=== PATIENT | male | born 1955 | race Caucasian/White ===

== ENCOUNTER → 2023-09-30 | Outpatient (REF) | payer OTHER, SELFPAY | LOC: DHSLP | PROVIDERS: ATTENDING PHYSICIAN Internal Medicine Critical Care Medicine; FAMILY PHYSICIAN Family Medicine | DX: G47.33 Obstructive sleep apnea (adult) (pediatric) (principal) | CPT/HCPCS: 95800 ==

== ENCOUNTER 2024-03-11 02:22 | Observation (INO) | payer OTHER, SELFPAY ==
[2024-03-10 20:48] VITALS: BP 134/86
[2024-03-10 21:03] LABS: Urine Albumin Trace (Neg - Trace); Urine Bilirubin Negative (Negative); Urine Character Clear (Clear); Urine Color Yellow; Urine Glucose Negative (Negative); Urine Ketone Negative (Negative); Urine Leukocyte 2+ (Negative); Urine Nitrite Negative (Negative); Urine Occult Blood 3+ (Negative); Urine Urobilinogen Negative (Neg - 1+)
[2024-03-10 21:08] LABS: Urine Bacteria Many (Negative); Urine Red Blood Cell 80-90 /HPF (0-2); Urine Squamous Cell 0-2 /LPF (Few)
[2024-03-10] MEDS: TORADOL 30 MG IV (22:01)
[2024-03-10] MEDS: NSS 1000 IV (22:02)
[2024-03-10] MEDS: DILAUDID 1 MG IV (22:03)
[2024-03-10] MEDS: ZOFRAN 4 MG IV (22:05)
[2024-03-10 22:16] LABS: % Basophils 0.5 % (0-2); % Eosinophils 2.3 % (0-6); % Immature Granulocytes 0.4 % (0-0.5); % Lymphocytes 9.9 % (20.5-51.1); % Monocytes 3.9 % (1.7-9.3); Absolute Basophils 0.1 10^3/uL (0-0.2); Absolute Eosinophils 0.3 10^3/uL (0-0.7); Absolute Immature Granulocytes 0.1 10^3/uL (0-0.05); Absolute Lymphocytes 1.5 10^3/uL (1.2-3.4); Absolute Monocytes 0.6 10^3/uL (0.1-0.6); Absolute Neutrophils 12.4 10^3/uL (1.4-6.5); Hemoglobin 14.6 g/dL (13.0-18.0); Mean Corp Hgb Conc. 34.8 g/dL (33.0-37.0); Mean Corpuscular Hgb 30.6 pg (27.0-31.0); Mean Corpuscular Volume 88.1 fL (80.0-94.0); Mean Platelet Volume 10.7 fL (7.4-10.4); Nucleated Red Blood Cells % 0 % (-); Platelet Count 235 10^3/uL (130-400); Red Blood Cell Count 4.77 10^6/uL (4.70-6.10); Red Cell Dist. Width 14.4 % (11.5-14.5); White Blood Cell Count 14.9 10^3/uL (4.8-10.8)
[2024-03-10 22:28] LABS: ALT (SGPT) 37 U/L (0-50); AST (SGOT) 36 U/L (17-59); Alkaline Phosphatase 97 U/L (38-126); Blood Urea Nitrogen 19 mg/dl (9-20); Carbon Dioxide 30 mmol/L (22-30); Glucose 96 mg/dl (70-99); Total Bilirubin 0.5 mg/dl (0.2-1.3); Total Protein 6.3 g/dl (6.3-8.2); eGFR > 60.00
[2024-03-10 22:57] LABS: Chloride 99 mmol/L (98-107); Potassium 3.3 mmol/L (3.5-5.1); Sodium 141 mmol/L (135-145)
--- NOTE | 2024-03-11 00:31 | ED.GENMED ---
History of Present Illness
General
Chief Complaint: Flank Pain
Source: patient
Exam Limitations: none
Time Seen by Provider: 03/10/24 21:42
History of Present Illness
History of Present Illness:
This is a 68 year old male that came sin with c/o right flank pain. States that his pain is a 8/10. States that this started in the morning and continued all day. States that he took Naproxen 2 tablets around 1pm. States that he has a kidney stone
and since is wasn't getting any better and he has had Sepsis before he thought he better come in. Denies any fever, chills, chest pain, SOB, abd pain, nausea, vomiting, diarrhea, headache, dizziness, urinary burning.
Past History
Past History
ED Past Medical History: Asthma, COPD, GERD, HTN and Other (Kidney stones, Chronic back pain with herniated discs, UTI, Sciatic, Sleep apnea, Hiatal hernia, Sepsis)
ED Past Surgical History: Orthopedic (Lumbar fusion), Urological (Lithotripsy, TURP, Stents, ) and Other (Hernia repair, )
Social History
Tobacco: Non-smoker
Alcohol: None
Drug: None
Personal:
Living: with family
Employment: Employed
Family History
Family History: Other (Noncontributory)
Review of Systems
Review of Systems
All Other Systems: ROS reviewed and negative except as documented in HPI and ROS
Constitutional: Reports no symptoms; Denies fever or chills
EENT: Reports no symptoms
Respiratory: Reports no symptoms; Denies cough or trouble breathing
Cardiac: Reports no symptoms; Denies chest pain
ABD/GI: Reports no symptoms; Denies abdominal pain, nausea, vomiting or diarrhea
: Reports flank pain (right sided)
Musculoskeletal: Reports no symptoms
Skin: Reports no symptoms
Neurological: Reports no symptoms; Denies dizzy or headache
Psychiatric: Reports no symptoms
Phy Exam
General Physical Exam
General Presentation: mild distress
General age: appears stated age
General Skin: warm and dry
General Habitus: normal
General Mental: alert
General Hydration: appears well hydrated
ENT Exam
ENT Exam: TM's normal, pharynx normal and neck supple
Eye Exam
Eye Exam: EOMI
Cardiovascular Exam
Cardiovascular Exam: regular rate/rhythm, no edema, no murmur and normal peripheral pulses
Pulmonary Exam
Pulmonary Exam: lungs clear, no respiratory distress, no rales, chest non tender, no crackles, no rhonchi, no wheezing and no cough
Gastrointestinal Exam
Gastrointestinal Exam: normal bowel sounds, non tender, soft, no organomegaly, no pulsatile mass, non distended and cva tenderness (Right sided)
Musculoskeletal Exam
Musculoskeletal Exam: full ROM and no edema
Skin Exam
Skin Exam: normal color, warm/dry, no rash and no petechia
Psychiatric Exam
Psychiatric Exam: normal mood/affect
Course
Orders/Labs/Results
Orders:
Orders
03/10/24 20:53
Urinalysis Reflex To Culture Urgent
Date Specimen was Collected: 03/10/24
Time Specimen was Collected: 20:51
Urine Microscopic Reflex Cult Urgent
Urine Culture Urgent
CODI Source: U
Specimen Description:
Date Specimen was Collected: 03/10/24
Time Specimen was Collected: 20:51
03/10/24 21:51
IV Insert/Care/Rem.- Treatment PRN
0.9% Sodium Chloride 1000 ml [Nss] 1,000 ml IV BOLUS
HYDROmorphone [Dilaudid] 1 mg IV NOW STA
Ketorolac [Toradol] 30 mg IV NOW STA
03/10/24 21:52
CT Abd/pel Without Iv Or Oral Urgent
Comment:
Reason For Exam: rIGHT FLANK PAIN
03/10/24 22:00
Ondansetron Injectable [Zofran] 4 mg .ROUTE .STK-MED ONE
03/10/24 22:04
Ondansetron Injectable [Zofran] 4 mg IV NOW STA
03/10/24 22:08
Complete Blood Count/With Diff Urgent
Comprehensive Metabolic Panel Urgent
Abnormal Lab Results
03/10/24 03/10/24
20:53 22:08
WBC 14.9 H 10^3/uL
(4.8-10.8)
MPV 10.7 H fL
(7.4-10.4)
Abs Immat Gran (auto) 0.1 H 10^3/uL
(0-0.05)
Absolute Neuts (auto) 12.4 H 10^3/uL
(1.4-6.5)
Neutrophils % 83.0 H %
(42.2-75.2)
Lymphocytes % 9.9 L %
(20.5-51.1)
Potassium 3.3 L mmol/L
(3.5-5.1)
Ur Occult Blood Reflex 3+ A
(Negative)
Leukocyte Esterase Rfl 2+ A
(Negative)
Urine RBC 80-90 A /HPF
(0-2)
Urine WBC (Reflex) 11-15 A /HPF
(0-5)
Urine Bacteria (Reflex) Many A
(Negative)
03/10/24 22:08
03/10/24 22:08
Leukocytosis, Hypokalemia, Urine positive for infection.
Vital Signs
Initial and Last Documented VS:
Initial Vital Signs
Temp Pulse Resp BP Pulse Ox
98.2 F 76 16 134/86 96
03/10/24 20:48 03/10/24 20:48 03/10/24 20:48 03/10/24 20:48 03/10/24 20:48
Last Documented Vital Signs
Temp Pulse Resp BP Pulse Ox
98.2 F 73 18 134/86 95
03/10/24 20:48 03/10/24 23:01 03/10/24 23:01 03/10/24 20:48 03/10/24 23:00
MDM/Problems Addressed
Differential Diagnosis Includes:
Renal calculus,
MDM/Problems Addressed:
This is a 68 year old male that comes in with c/o right flank pain. States that this started in the morning and has been constant all day. Sstates that he took Naproxen but this only helped for a short time.
Will get labs, CT scan. IV fluids and pain medication.
Back into see patient. Explained that he duran a 5mm stone in the mid ureter. However, patient has an elevated WBC count and his urine appears infected. Will admit patient. Hospitalist and Urology notified.
Chronic conditions affecting care:
History of Renal calculus, Sepsis,
Acute Exacerbation and/or Progression of Chronic Illness:
Renal calculus
*Radiology
Radiology exam reviewed: radiology read reviewed (CT night hawk- MIld right hydronephrosis with a 5mm stone within the mid right ureter. Additional nonobstructing bilaterl nephrolithiasis. No bowel obstruction. Normal gallbladder and appendix.
Incidentals: No obstructive uropathy. No hepatic or pancreatic mass. Infrarenal abdominal aortic aneurysm ) and all reviewed NAD by ED Provider (CT cont- Aneurysm measuring 2.8 cm. No acute osseous abnormality. No acute abnormality within the
visualized lungs. No acute abnormality within the visualized soft tissues. )
*Pulse Oximetry
Patient hypoxic: no
*EKG
Interpreted by ED Provider?: NA
Rate: EKG- N/A
*Jack Setter Interpretation
Rate: Jack Setter- N/A
*Critical Care Note
Total Time (30-74mins, 75-104mins- exclusive of procedures): Not Applicable
ED Attending Note
-
Portions of this chart may have been created with voice recognition software.� Occasional wrong word or��sound alike� substitutions may have occurred due to the inherent limitations of voice recognition software.
Discharge Plan
Departure
Patient Disposition: Admit
Date of Disposition: 03/11/24
Time of Disposition: 00:55
Presentation/result/management discussed w/ accepting /DO: Hospitalist
Patient with high blood pressure during this ER visit?: Yes
Condition: Good
Covid-19: Not Applicable
Discharge Problem:
Urinary tract infection, Renal calculus, right
Prescriptions:
No Action
pantoprazole 40 MG tablet,delayed release (DR/EC)
40 mg PO DAILYPRN PRN (Reason: gerd)
potassium citrate 10 MEQ tablet extended release
20 meq PO BID Qty: 0 0RF
ipratropium-albuterol 3 ML solution for nebulization
3 ml inhalation R Q4HPRN PRN (Reason: SOB)
albuterol sulfate [Proventil HFA] 90 MCG/PUFF HFA aerosol inhaler
2 puff inhalation R Q4HPRN PRN (Reason: asthma)
alprazolam [Xanax] 1 mg Tablet
0.5 mg PO HSPRN PRN (Reason: sleep)
hydralazine 25 mg Tablet
25 mg PO BID
therapeutic multivitamin Tablet
1 tab PO DAILY
hydrochlorothiazide 25 mg Tablet
25 mg PO QPM
losartan 100 mg Tablet
100 mg PO QPM
cefdinir 300 mg capsule
300 mg PO Q12H 11 Days Qty: 22 0RF
Referrals:
Tavo Gerber DO [Family Provider] -
Interventions
Interventions:
GT-Gvedrx-Imopnkdtlb Assessment Last Done: 03/10/24 21:50
ED-Male Genitourinary Assessment Last Done: 03/10/24 21:50
Discharge Date and Time
Print Language: SYRIAN
[2024-03-11] MEDS: ROCEPHIN 1000 MG IV ×2 (00:59→21:16)
[2024-03-11] MEDS: FLOMAX 0.4 MG PO ×2 (00:59→08:56)
[2024-03-11 01:04] VITALS: BP 94/53
[2024-03-11 01:05] VITALS: BP 94/53; BMI 31.9
--- NOTE | 2024-03-11 01:31 | HPS.HSE ---
Family Physician
-
Family Physician: Tavo Gerber
Chief Complaint
-
Right-sided flank pain
History of Present Illness
This is a 68-year-old male who comes in with right-sided flank pain and a history of recurrent nephrolithiasis with multiple passed stones in the past.
Patient has a history of asthma, hypertension and obesity as well as nephrolithiasis sustainable. He had was instructed of health but later in the morning developed right flank pain that is reminiscent of his kidney stones. It radiates to the
groin but not anywhere else. He was told to come to the emergency department early for evaluation of the stone. Patient denies any dysuria hematuria. He denies have any fevers or chills. He denies any nausea or vomiting. Denies any
lightheadedness or dizziness.
On arrival in the emergency department his blood pressure was 94/53 pulse 79 and he was afebrile. He did have a white count of 15,000 with rest of CBC unremarkable. Chemistries were unremarkable except for a potassium of 3.3. UA was positive for
hematuria, pyuria, bacteriuria and leukocyte esterase. There was no nitrites.
A CT of the abdomen pelvis showed a 5 mm stone in the right mid ureter. No hydronephrosis.
Medical History
Past Medical History
Past Medical History: Reports Asthma and HTN
Past Surgical History: Reports None
Social History
Tobacco: Non-smoker
Alcohol: Occasional
Drug: None
Personal:
Living: With Family
Family History
Family History: Not pertinent
Allergies / Home Medications
Allergies reflects when Allergies were last updated in [facility] [address].
Home Medications with original date entered in [address]
Allergy/Medication List:
Allergies
Allergy/AdvReac Type Severity Reaction Status Date / Time
cat dander Allergy Unknown Verified 03/10/24 20:48
house dust Allergy Unknown Verified 03/10/24 20:48
pollen extracts Allergy Unknown Verified 03/10/24 20:48
Home Medications
pantoprazole 40 mg tablet,delayed release 40 mg PO DAILYPRN PRN gerd 12/03/13
potassium citrate 10 mEq (1,080 mg) tablet,extended release 20 meq (2 x 10 mEq (1,080 mg)) PO BID #0 tabs 02/01/14
albuterol sulfate 90 mcg/actuation aerosol inhaler (Proventil HFA) 2 puff inhalation R Q4HPRN PRN asthma 08/26/18
ipratropium 0.5 mg-albuterol 3 mg (2.5 mg base)/3 mL nebulization soln 3 ml inhalation R Q4HPRN PRN SOB 08/26/18
alprazolam 1 mg tablet (Xanax) 1 mg PO HSPRN PRN sleep 04/05/23
hydralazine 25 mg tablet 25 mg PO BID 04/05/23
hydrochlorothiazide 25 mg tablet 25 mg PO QPM 04/05/23
losartan 100 mg tablet 100 mg PO QPM 04/05/23
therapeutic multivitamin 1 tab PO DAILY 04/05/23
cefdinir 300 mg capsule 300 mg PO Q12H 11 days #22 caps 04/08/23
Review of Systems
-
History Source: Patient
Constitutional: Reports No Symptoms
EENT: Reports No Symptoms
Respiratory: Reports No Symptoms
Cardiac: Reports No Symptoms
Abdomen/GI: Reports No Symptoms
: Reports Flank Pain
Musculoskeletal: Reports No Symptoms
Skin: Reports No Symptoms
Neurological: Reports No Symptoms
Endocrine: Reports No Symptoms
Hematologic/Lymphatic: Reports No Symptoms
Psych: Reports No Symptoms
Physical Exam
Vital Signs
Vital Signs
Temp Pulse Resp BP Pulse Ox
98.5 F 79 18 94/53 95
03/11/24 01:05 03/11/24 01:05 03/11/24 01:05 03/11/24 01:05 03/11/24 01:05
Physical Exam
General: Well Developed, Well Nourished and No Apparent Distress
HEENT: NormoCephalic, Anicteric and Moist mucous membranes
Respiratory: Clear
Cardiac: S1/S2 and Regular Rhythm
Breast: Deferred by me
GI: Soft, Non Tender, Non Distended and Normal Bowel Sounds
Rectal: Deferred by Provider
Genito-urinary: Deferred by me
Musculoskeletal: No Clubbing, No Cyanosis and No Edema
Skin: Warm
Neuro: AO x 3
Hematologic/Lymphatic: No Lymphadenopathy
Psych: Calm
Laboratory Results
-
03/10/24 22:08
03/10/24 22:08
Laboratory Results
Lactic Acid 1.0 mmol/L (0.7-2.0) 03/11/24 00:56
Total Bilirubin 0.5 mg/dl (0.2-1.3) 03/10/24 22:08
AST 36 U/L (17-59) 03/10/24 22:08
ALT 37 U/L (0-50) 03/10/24 22:08
Alkaline Phosphatase 97 U/L (38-126) 03/10/24 22:08
Data Reviewed
-
CT Scan: Report Reviewed by me
Lab Data: Labs Reviewed by me
Old Records: Reviewed
Impression/Plan
-
IMPRESSION:
PLAN:
1. Kidney stone - Patient with renal colic and recurrent right kidney stone. 5mm in the mid right ureter. There is positive u/a (pyuria, LE, bacteruria) but no signs of systemic infection. Negative nitrites. Urology notified.
- admit to med/surg obs
- npo after midnight
- possible procedure in am depending on signs of infection or passed stone.
- tamsulosin, pain control, iv fluids
- given + u/a, on abx. Ceftriaxone IV for now.
- urology consult.
2. HTN - BP 94/53. Non-tachycardic. Unlikely sepsis. Lactate pending.
- holding hydralazine and losartan given boderline bp, lactate pending.
3. Hypokalemia - On HCTZ.
- hold hctz
- K supplementation 40mq overnight
DVT PPX lovenox sq
Full Code
[2024-03-11 02:46] VITALS: BP 94/42; BMI 32.2
--- NOTE | 2024-03-11 03:00 | PTCARENOTE ---
Pt arrived to [facility] from ED and ambulated with x1 assist from stretcher to bed. Pt denies dizziness or pain at this time; BP on admission 94/42, HR 80. NS infusing at 100 mL/hr. Pt oriented to room, call dupree within reach.
[2024-03-11] MEDS: NSS 1000 IV ×3 (03:20→23:02)
[2024-03-11 08:24] VITALS: BP 98/56
[2024-03-11 08:26] LABS: INR 1.18; PT 15.1 Sec (11.4-14.6)
[2024-03-11 08:39] LABS: Hematocrit 39.7 % (39.0-52.0); Hemoglobin 13.8 g/dL (13.0-18.0); Mean Corp Hgb Conc. 34.8 g/dL (33.0-37.0); Mean Corpuscular Hgb 30.9 pg (27.0-31.0); Mean Corpuscular Volume 88.8 fL (80.0-94.0); Mean Platelet Volume 10.9 fL (7.4-10.4); Platelet Count 186 10^3/uL (130-400); Red Blood Cell Count 4.47 10^6/uL (4.70-6.10); Red Cell Dist. Width 14.4 % (11.5-14.5); White Blood Cell Count 19.1 10^3/uL (4.8-10.8)
[2024-03-11 08:40] LABS: Blood Urea Nitrogen 18 mg/dl (9-20); Calcium 8.8 mg/dl (8.4-10.2); Carbon Dioxide 24 mmol/L (22-30); Chloride 102 mmol/L (98-107); Estimated Creatinine Clearance 61 ml/min; Glucose 125 mg/dl (70-99); Potassium 3.2 mmol/L (3.5-5.1); Sodium 139 mmol/L (135-145)
[2024-03-11] MEDS: THERAGRAN 1 TABLET PO (08:57)
--- NOTE | 2024-03-11 09:57 | W.PN.HOSP.TC ---
Today's Communication/Plan
-
Resume diet
Check magnesium
Replete potassium
IVF bolus
N.p.o. after midnight
Assessment / Plan
Assessment / Plan
Gen-AAOx3, NAD, obese
HEENT-NC, AT, anicteric, clear oral mm
Neck-supple
CV-reg, no M, +S1/S2
Lungs-clear B/L
Abd-soft, NT, ND
Ext-no edema
Musculoskeletal-no cyanosis, clubbing
Skin-warm and dry
Neuro-grossly non-focal
Psych-calm, cooperative
Symptomatic nephrolithiasis -symptoms of pain improved with opiates. 5 mm obstructing right ureteral stone noted on CT scan, moderate to severe right pelvic calyceal dilation. Bilateral nephroliths.
Urology recommends monitoring for now, no intervention today. May need intervention tomorrow if symptoms worsen. Discussed with Dr. Farias.
Rising WBCs noted, afebrile. Appears nontoxic.
Pyuria noted on urinalysis along with hematuria. Urine culture pending. On empiric antibiotics. No signs or symptoms of UTI currently.
Resume diet today, n.p.o. after midnight.
No signs or symptoms of sepsis despite low blood pressure. Hold antihypertensives, continue IV fluids, give 250 cc bolus now. Discussed with nurse.
Hypokalemia - replete orally. Check magnesium.
Essential hypertension -currently hypotensive, medications on hold.
Obesity due to excess calories
Full code
Anticipated Discharge: 24 - 48 hours
Subjective/Interval History
-
Date of Service: March 11, 2024
Patient seen and examined. Denies any further pain. Complaining of dry mouth.
Objective Data
-
Labs:
Laboratory Results
03/10/24 03/11/24
22:08 07:41
WBC 14.9 H 19.1 H
Hgb 14.6 13.8
Hct 42.0 39.7
Plt Count 235 186 D
PT 15.1 H
INR 1.18
Sodium 141 139
Potassium 3.3 L 3.2 L
Chloride 99 102
Carbon Dioxide 30 24
BUN 19 18
Creatinine 1.0 1.3
Glucose 96 125 H
Calcium 10.0 8.8
Total Bilirubin 0.5
AST 36
ALT 37
Alkaline Phosphatase 97
Vital Signs:
Vital Signs
Temp Pulse Resp BP Pulse Ox
97.8 F 74 18 98/56 94
03/11/24 08:24 03/11/24 08:24 03/11/24 08:24 03/11/24 08:24 03/11/24 08:24
I&O
03/10/24 03/11/24 03/12/24
06:59 06:59 06:59
Intake Total 300 / 300
Balance 300 / 300
Review of Systems
-
History Source: Patient
All other systems: Reviewed and negative
--- NOTE | 2024-03-11 10:05 | W.PN.URO.CBU ---
Today's Communication / Plan
-
call if feve r over 101. 5 may eat npo afte hs
Assessment / Plan
-
non toxic and h/o of both passing stones but also sepsis as wbc increased to 19k from 14 will observe in hopsital to op room if fevr chills otherwise npo post hs and revaluate in am
Diagnosis
-
Date of Service: March 11, 2024
-
Patient Diagnosis:rt ueretal 4 and 1 mm stones distal with colic no fevr chills
Post Op Day:
Subjective
-
much iomproved
Objective
-
Vital Signs
Temp Pulse Resp BP Pulse Ox
97.8 F 74 18 98/56 94
03/11/24 08:24 03/11/24 08:24 03/11/24 08:24 03/11/24 08:24 03/11/24 08:24
Intake and Output
03/10/24 03/11/24 03/12/24
06:59 06:59 06:59
Intake Total 300 / 300
Balance 300 / 300
Intake:
IV fluids (Total) 300 / 300
Other:
Number of unmeasured voidings 2
Laboratory Results
03/11/24 07:41
03/11/24 07:41
Review of Systems
-
Abdomen/GI: No Symptoms
: No Symptoms
Physical Exam
-
General - well developed, well nourished, no acute distress
Chest - clear bilaterally
Abdomen - soft, non-tender, positive bowel sounds, no CVAT, no incisional pain or distention
Genitalia - normal
Rectal - normal
Skin - warm & dry with no rash
Neuro - AOx3, no motor deficits
Extremities - no clubbing, no cyanosis, no edema
Incision - clean, dry
Dressing - clean, dry, intact
Care Review
Data Reviewed
Discussed with: Hospitalist and Nursing
CT Scan: Image Pers Reviewed
[2024-03-11] MEDS: KCL 40 MEQ PO (10:17)
[2024-03-11] MEDS: NSS 250 IV (10:18)
[2024-03-11 10:24] LABS: Magnesium 1.5 mg/dl (1.6-2.3)
[2024-03-11] MEDS: PROTONIX 40 MG PO (11:02)
[2024-03-11] MEDS: MAGNESIUM SULFATE 50 IV (13:52)
[2024-03-11 15:39] VITALS: BP 111/70
[2024-03-11] MEDS: ProAIR HFA INHALER 2 PUFF INH (16:58)
[2024-03-11] MEDS: LOVENOX 40 MG SC (18:04)
[2024-03-11] MEDS: KCL 20 MEQ PO (19:55)
[2024-03-11] MEDS: XANAX PO (21:16)
[2024-03-11] MEDS: STERILE WATER FOR INJECTION 10 ML IV (21:16)
[2024-03-11] MEDS: XANAX 0.5 MG PO (22:09)
[2024-03-11] MEDS: DILAUDID 0.5 MG IV (22:09)
[2024-03-11 23:25] VITALS: BP 102/64
[2024-03-12] MEDS: DILAUDID 0.5 MG IV (02:14)
--- NOTE | 2024-03-12 06:38 | CM ---
met with patient at bedside.he lives in an apt at [facility] with an elevator.he amb ihis bed and bath is on first level,he is totally I ambulating and with his adl.states he goes to gym daily. he has had a vn from [facility] but has nevr been in ip
rehab.
PVP: dr benjamin and he uses [facility] in [place].
PMH:obesity,htn
Patient is adm with right ureteral stone.pain has improved with pain meds.his wbc are rising.he is npo.urology to re eval this am.Plan: home with no needs.patient
--- NOTE | 2024-03-12 07:07 | PTCARENOTE ---
No labs ordered for pt this AM. [facility] notified, orders placed for mag, CBC and BMP ordered for this AM.
[2024-03-12 07:15] VITALS: BP 129/70
[2024-03-12] MEDS: FLOMAX 0.4 MG PO (08:02)
[2024-03-12] MEDS: KCL 20 MEQ PO (08:02)
[2024-03-12] MEDS: THERAGRAN 1 TABLET PO (08:02)
[2024-03-12] MEDS: ProAIR HFA INHALER 2 PUFF INH (08:08)
[2024-03-12] MEDS: NSS 1000 IV (08:14)
[2024-03-12] MEDS: SYMBICORT 160/4.5 MCG INHALER 2 PUFF INH (09:16)
[2024-03-12] MEDS: SPIRIVA RESPIMAT 2.5 MCG 2 PUFF INH (09:16)
[2024-03-12 09:30] LABS: % Basophils 0.2 % (0-2); % Eosinophils 0.3 % (0-6); % Immature Granulocytes 0.8 % (0-0.5); % Monocytes 6.8 % (1.7-9.3); % Neutrophils 84.9 % (42.2-75.2); Absolute Eosinophils 0.1 10^3/uL (0-0.7); Absolute Immature Granulocytes 0.1 10^3/uL (0-0.05); Absolute Lymphocytes 1.3 10^3/uL (1.2-3.4); Absolute Monocytes 1.3 10^3/uL (0.1-0.6); Absolute Neutrophils 15.8 10^3/uL (1.4-6.5); Hematocrit 37.6 % (39.0-52.0); Hemoglobin 12.8 g/dL (13.0-18.0); Mean Corpuscular Hgb 30.3 pg (27.0-31.0); Mean Corpuscular Volume 88.9 fL (80.0-94.0); Mean Platelet Volume 11.2 fL (7.4-10.4); Nucleated Red Blood Cells % 0 % (-); Platelet Count 159 10^3/uL (130-400); Red Blood Cell Count 4.23 10^6/uL (4.70-6.10); Red Cell Dist. Width 14.4 % (11.5-14.5); White Blood Cell Count 18.6 10^3/uL (4.8-10.8)
--- NOTE | 2024-03-12 09:59 | W.PN.HOSP.TC ---
Addendum entered and electronically signed by Jsaiel Batista DO 03/12/24 14:19:
UTI due to nephrolithiasis -continue antibiotics on discharge. Urology has agreed to follow-up on culture sensitivity results after discharge.
Addendum entered and electronically signed by Jasiel Batista DO 03/12/24 11:39:
Urine culture so far shows greater than 100,000 gram-negative bacilli.
Previous urine cultures were E. coli with sensitivities noted.
Can discharge on a course of Bactrim and recommend close follow-up with PCP and urology.
Discussed with Dr. Farias.
Original Note:
Today's Communication/Plan
-
Await urine culture
Discharge
Assessment / Plan
Assessment / Plan
Gen-AAOx3, NAD, obese
HEENT-NC, AT, anicteric, clear oral mm
Neck-supple
CV-reg, no M, +S1/S2
Lungs-clear B/L
Abd-soft, NT, ND
Ext-no edema
Musculoskeletal-no cyanosis, clubbing
Skin-warm and dry
Neuro-grossly non-focal
Psych-calm, cooperative
Symptomatic nephrolithiasis -symptoms of pain improved with opiates. 5 mm obstructing right ureteral stone noted on CT scan, moderate to severe right pelvic calyceal dilation. Bilateral nephroliths.
Patient feels much better, passed 3 stones this morning. White blood cell count still up at 18,000. Afebrile. Continue antibiotics. Await urine culture.
Discussed with urology, recommendation is to discharge home on antibiotics today. Follow-up as outpatient.
Hypokalemia - replete orally.
Hypomagnesemia -repleted.
Essential hypertension -hypotension resolved.
Obesity due to excess calories
Full code
Dispo -anticipate discharge home later today after urine culture resulted. Outpatient follow-up.
33 minutes spent in discharge process.
Anticipated Discharge: Today
Subjective/Interval History
-
Date of Service: March 12, 2024
Patient seen and examined. Just past 3 kidney stones this morning, feels much better. Eager to go home. No complaints.
Objective Data
-
Labs:
Laboratory Results
03/12/24
09:09
WBC 18.6 H
Hgb 12.8 L
Hct 37.6 L
Plt Count 159
Vital Signs:
Vital Signs
Temp Pulse Resp BP Pulse Ox
98.4 F 76 16 129/70 95
03/12/24 07:15 03/12/24 08:10 03/12/24 08:10 03/12/24 07:15 03/12/24 08:10
I&O
03/11/24 03/12/24 03/13/24
06:59 06:59 06:59
Intake Total 300 / 300 3625 / 3625
Output Total 350 / 350
Balance 300 / 300 3275 / 3275
Review of Systems
-
History Source: Patient
All other systems: Reviewed and negative
--- NOTE | 2024-03-12 11:36 | PTCARENOTE ---
WBC 18.6 Urine Culture :Gram -(neg) bacilli - hospitalist notified
--- NOTE | 2024-03-12 11:41 | W.DS.TRANS ---
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
-
Discharge Instructions:
Discharge Diagnosis/Procedures Nephrolithiasis, electrolyte abnormalities
Diet Regular
Activity As tolerated
Driving Restrictions As prior to admission
Bathing Restrictions None
Blood Work BMP, CBC next week with your primary care doctor
Instructions:
Stand-Alone Forms:
Changes to Home Medications: No
Discharge Medications:
DC Medications w/original date entered in [facility] [employer]
pantoprazole 40 mg tablet,delayed release 40 mg PO DAILYPRN PRN gerd 12/03/13
potassium citrate 10 mEq (1,080 mg) tablet,extended release 20 meq (2 x 10 mEq (1,080 mg)) PO BID #0 tabs 02/01/14
albuterol sulfate 90 mcg/actuation aerosol inhaler (Proventil HFA) 2 puff inhalation R Q4HPRN PRN asthma 08/26/18
ipratropium 0.5 mg-albuterol 3 mg (2.5 mg base)/3 mL nebulization soln 3 ml inhalation R Q4HPRN PRN SOB 08/26/18
alprazolam 1 mg tablet (Xanax) 1 mg PO HSPRN PRN sleep 04/05/23
hydralazine 25 mg tablet 25 mg PO BID Blood Pressure 04/05/23
hydrochlorothiazide 25 mg tablet 25 mg PO QPM Fluid Retention/Swelling 04/05/23
losartan 100 mg tablet 100 mg PO QPM Blood Pressure 04/05/23
therapeutic multivitamin 1 tab PO DAILY Supplement 04/05/23
potassium chloride 20 mEq tablet,extended release(part/cryst) 20 meq PO DAILY #10 tabs 03/12/24
sulfamethoxazole 800 mg-trimethoprim 160 mg tablet (Bactrim DS) 1 tab PO BID #10 tabs 03/12/24
tamsulosin 0.4 mg capsule 0.4 mg PO DAILY #30 caps 03/12/24
Home Medication Changes
Pending Results: No
--- NOTE | 2024-03-12 12:08 | CM ---
Home today, no needs.
Plan: home no needs.
--- NOTE | 2024-03-12 12:29 | PTCARENOTE ---
Patient passed 3 small stones this morning , no c/o pain or discomfort after . Hospitalist notified. Patient discharged without incidence after med review.
--- NOTE | 2024-03-12 12:32 | W.PN.URO.CBU ---
Today's Communication / Plan
-
home
Assessment / Plan
-
non toxic wbc down sligt ur cx gm neg bacilli h/o e coli pt passed 3 stones will d/c on abs and pt to call for follow up uti and stones return f fevr chills pain
Diagnosis
-
Date of Service: March 12, 2024
-
Patient Diagnosis:
Post Op Day:
Patient Diagnosis:rt ueretal 4 and 1 mm stones distal with colic no fevr chills
Post Op Day:
Subjective
-
afeb passed 3 stones
Objective
-
Vital Signs
Temp Pulse Resp BP Pulse Ox
98.4 F 76 16 129/70 95
03/12/24 07:15 03/12/24 08:10 03/12/24 08:10 03/12/24 07:15 03/12/24 08:10
Intake and Output
03/11/24 03/12/24 03/13/24
06:59 06:59 06:59
Intake Total 300 / 300 3625 / 3625
Output Total 350 / 350
Balance 300 / 300 3275 / 3275
Intake:
Oral fluids 1525 / 1525
IV fluids (Total) 300 / 300 2100 / 2100
Output:
Urine, Voided 350 / 350
Other:
Number of unmeasured voidings 2
Number of approximated MODERATE 1
amounts of urine
Laboratory Results
03/12/24 09:09
03/11/24 07:41
Review of Systems
-
: No Symptoms
Physical Exam
-
General - well developed, well nourished, no acute distress
Chest - clear bilaterally
Abdomen - soft, non-tender, positive bowel sounds, no CVAT, no incisional pain or distention
Genitalia - normal
Rectal - normal
Skin - warm & dry with no rash
Neuro - AOx3, no motor deficits
Extremities - no clubbing, no cyanosis, no edema
Incision - clean, dry
Dressing - clean, dry, intact
Care Review
Data Reviewed
Discussed with: Hospitalist and Nursing
== END 2024-03-12 13:08 | disposition home or self-care (01) ==
LOC: 4 WEST ACU 02:22
PROVIDERS: Clinical Nurse Specialist Family Health; Emergency Medicine; ADMITTING PHYSICIAN Internal Medicine; ATTENDING PHYSICIAN Hospitalist; CONSULT PHYSICIAN Specialist; EMERGENCY PHYSICIAN Emergency Medicine; FAMILY PHYSICIAN Family Medicine
DX: N20.2 Calculus of kidney with calculus of ureter (principal); N39.0 Urinary tract infection, site not specified; R10.9 Unspecified abdominal pain; G89.29 Other chronic pain; B96.89 Other specified bacterial agents as the cause of diseases classified elsewhere; I10 Essential (primary) hypertension; E66.09 Other obesity due to excess calories; E83.42 Hypomagnesemia; E87.8 Other disorders of electrolyte and fluid balance, not elsewhere classified; I95.9 Hypotension, unspecified; G47.30 Sleep apnea, unspecified; J44.89 Other specified chronic obstructive pulmonary disease; K21.9 Gastro-esophageal reflux disease without esophagitis; K44.9 Diaphragmatic hernia without obstruction or gangrene; E87.6 Hypokalemia; D72.829 Elevated white blood cell count, unspecified; Z90.79 Acquired absence of other genital organ(s); Z87.442 Personal history of urinary calculi; Z87.440 Personal history of urinary (tract) infections; Z68.32 Body mass index [BMI] 32.0-32.9, adult
CPT/HCPCS: 74176; 80048; 80053; 81003; 81015; 83605; 83735; 85025; 85027; 85610; 87077; 87086; 87186; 94640; 96361; 96374; 96375; 99285; G0378

== ENCOUNTER 2024-05-25 13:26 | Inpatient (IN) | payer OTHER, SELFPAY ==
[2024-05-25] VITALS (8 sets, daily range): BP systolic 94–127; BP diastolic 53–94; BMI 33.2; BMI 34.0
--- NOTE | 2024-05-25 08:12 | ED.GENMED ---
History of Present Illness
General
Chief Complaint: Abdominal Pain
Source: patient
Exam Limitations: none
Time Seen by Provider: 05/25/24 07:57
Nursing documentation reviewed up to this point in time: agreed with
History of Present Illness
History of Present Illness:
69 yr. old male presents to the ED with c /o of rlq pain.
pt reports pain started 4 nights ago. He has had fevers as high as 101. He does have history of kidney stones but reports this pain feels different. He has not had an appetite with this pain. He denies any nausea vomiting. He denies any
injury. He denies any radiation of pain.
Past History
Past History
ED Past Medical History: Asthma, COPD, GERD, HTN and Other (Kidney stones, Chronic back pain with herniated discs, UTI, Sciatic, Sleep apnea, Hiatal hernia, Sepsis)
ED Past Surgical History: Orthopedic (Lumbar fusion), Urological (Lithotripsy, TURP, Stents, ) and Other (Hernia repair, )
Social History
Tobacco: Non-smoker
Alcohol: None
Drug: None
Personal:
Living: with family
Employment: Employed
Family History
Family History: Other (Noncontributory)
Review of Systems
Review of Systems
Allergies reviewed?: Yes
All Other Systems: ROS reviewed and negative except as documented in HPI and ROS
Constitutional: Reports fever and fatigue
Respiratory: Reports no symptoms
Cardiac: Reports no symptoms
ABD/GI: Reports abdominal pain; Denies vomiting or diarrhea
: Reports no symptoms; Denies dysuria, incontinence or bleeding
Musculoskeletal: Reports no symptoms
Skin: Reports no symptoms
Neurological: Reports no symptoms
Psychiatric: Reports no symptoms
Phy Exam
General Physical Exam
General Presentation: no apparent distress
General age: appears stated age
General Skin: warm and dry
General Habitus: normal
General Mental: alert
General Hydration: dry mucous membranes
Cardiovascular Exam
Cardiovascular Exam: regular rate/rhythm, no murmur and normal peripheral pulses
Pulmonary Exam
Pulmonary Exam: lungs clear and no respiratory distress
Gastrointestinal Exam
Gastrointestinal Exam: other (Mild nonspecific right mid to lower quadrant pain)
Neurological Exam
Neurological Exam: alert and oriented x3
Musculoskeletal Exam
Musculoskeletal Exam: full ROM
Skin Exam
Skin Exam: normal color and warm/dry
Psychiatric Exam
Psychiatric Exam: normal mood/affect
Course
Orders/Labs/Results
Orders:
Orders
05/25/24 08:08
CMP [Comprehensive Metabolic Panel] Urgent
Complete Blood Count/With Diff Urgent
Lipase Urgent
05/25/24 08:12
0.9% Sodium Chloride 1000 ml [Nss] 1,000 ml IV BOLUS
05/25/24 09:07
CT Abd/pel (oral only)-DH Only Urgent
Comment:
Reason For Exam: rlq pain
Iohexol [Omnipaque] See Protocol PO NOW STA
05/25/24 10:45
UA Reflex to Culture [Urinalysis Reflex To Culture] Urgent
Date Specimen was Collected: 05/25/24
Time Specimen was Collected: 10:38
Urine Microscopic Reflex Cult Urgent
Urine Culture Urgent
CODI Source: U
Specimen Description:
Date Specimen was Collected: 05/25/24
Time Specimen was Collected: 10:38
05/25/24 12:42
CefTRIAXone [Rocephin] 1,000 mg IV NOW STA
05/25/24 12:45
Morphine Sulfate 2 mg IV NOW STA
Abnormal Lab Results
05/25/24 05/25/24
08:08 10:45
WBC 13.3 H 10^3/uL
(4.8-10.8)
MPV 10.8 H fL
(7.4-10.4)
Abs Immat Gran (auto) 0.1 H 10^3/uL
(0-0.05)
Absolute Neuts (auto) 10.5 H 10^3/uL
(1.4-6.5)
Absolute Lymphs (auto) 0.8 L 10^3/uL
(1.2-3.4)
Absolute Monos (auto) 1.8 H 10^3/uL
(0.1-0.6)
Immature Gran % 0.9 H %
(0-0.5)
Neutrophils % 78.9 H %
(42.2-75.2)
Lymphocytes % 6.0 L %
(20.5-51.1)
Monocytes % 13.2 H %
(1.7-9.3)
BUN 36 H mg/dl
(9-20)
Creatinine 1.8 H mg/dL
(0.7-1.3)
Glucose 127 H mg/dl
(70-99)
Total Protein 6.1 L g/dl
(6.3-8.2)
Albumin 3.4 L g/dl
(3.5-5.0)
Ur Occult Blood Reflex 1+ A
(Negative)
Urine Nitrite (Reflex) Positive A
(Negative)
Leukocyte Esterase Rfl 2+ A
(Negative)
Urine RBC 7-10 A /HPF
(0-2)
Urine WBC (Reflex) 40-50 A /HPF
(0-5)
Urine Bacteria (Reflex) Many A
(Negative)
05/25/24 08:08
05/25/24 08:08
Vital Signs
Initial and Last Documented VS:
Initial Vital Signs
Temp Pulse Resp Pulse Ox
98.2 F 86 16 97
05/25/24 07:48 05/25/24 07:48 05/25/24 07:48 05/25/24 07:48
Last Documented Vital Signs
Temp Pulse Resp BP Pulse Ox
98.2 F 83 16 95/59 95
05/25/24 07:48 05/25/24 08:16 05/25/24 08:16 05/25/24 12:00 05/25/24 12:00
Geospatial Developer consulted with Physician
Geospatial Developer consulted with physician?: Yes
Name of Physician Consulted: Jolie
MDM/Problems Addressed
Differential Diagnosis Includes:
Not limited to kidney stone pyelonephritis UTI
MDM/Problems Addressed:
Patient is a 69-year-old male with known history of kidney stones presents to the ER complaining of right sided abdominal pain which initially he reported felt differently than his kidney stones. CAT scan however does show a 7 mm stone in the
ureter with hydro.
From patient is followed by our urology group here at [place]. In addition he complained of feeling fatigued. His white count is elevated at 13,000 and his renal function is elevated with a creatinine of 1.8 which is new from 1.3 on March
5. Urine is infected with 40�50 white blood cells in the urine. Case reviewed with urology who will come see patient however with fatigue infected urine with stone will admit. Prior cultures reviewed IV Rocephin ordered
Chronic conditions affecting care:
History history of renal stones
*Radiology
Radiology exam reviewed: radiology read reviewed
*Pulse Oximetry
Patient hypoxic: no
*Critical Care Note
Total Time (30-74mins, 75-104mins- exclusive of procedures): Not Applicable
Patient Management
Discussion with other providers: [facility] (urology DR Marina )
ED Attending Note
-
Portions of this chart may have been created with voice recognition software.� Occasional wrong word or��sound alike� substitutions may have occurred due to the inherent limitations of voice recognition software.
Discharge Plan
Departure
Patient Disposition: Admit
Date of Disposition: 05/25/24
Time of Disposition: 12:53
Admit to: Med/Surg
Admit to doctor: hospitalist
Presentation/result/management discussed w/ accepting MD/DO: Hospitalist
Patient with high blood pressure during this ER visit?: No
Condition: Fair
Covid-19: Not Applicable
Discharge Problem:
Calculus, ureteral, Acute UTI
Prescriptions:
No Action
pantoprazole 40 MG tablet,delayed release (DR/EC)
40 mg PO DAILYPRN PRN (Reason: gerd)
potassium citrate 10 MEQ tablet extended release
20 meq PO BID Qty: 0 0RF
ipratropium-albuterol 3 ML solution for nebulization
3 ml inhalation R Q4HPRN PRN (Reason: SOB)
albuterol sulfate [Proventil HFA] 90 MCG/PUFF HFA aerosol inhaler
2 puff inhalation R Q4HPRN PRN (Reason: asthma)
alprazolam [Xanax] 1 mg Tablet
1 mg PO HSPRN PRN (Reason: sleep)
hydralazine 25 mg Tablet
25 mg PO BID
hydrochlorothiazide 25 mg Tablet
25 mg PO QPM
losartan 100 mg Tablet
100 mg PO QPM
sulfamethoxazole-trimethoprim [Bactrim DS] 800-160 mg tablet
1 tab PO BID Qty: 10 0RF
Referrals:
Tavo Gerber DO [Family Provider] -
Interventions
Interventions:
*Risk Screen - Suicide Last Done: 05/25/24 07:48
*General Assessment Last Done: 05/25/24 07:48
*Neglect/Abuse Screening Last Done: 05/25/24 07:48
ED- Fall Risk Assessment Last Done: 05/25/24 07:59
*ED COVID-19 Vaccine History Last Done: 05/25/24 07:58
CG-Ieycnb-Otxrgdpock Assessment Last Done: 05/25/24 08:06
ED- Neurological Assessment Last Done: 05/25/24 08:26
ED-Skin Assessment Last Done: 05/25/24 08:06
Discharge Date and Time
Print Language: MAORI
[2024-05-25 08:20] LABS: % Basophils 0.4 % (0-2); % Eosinophils 0.6 % (0-6); % Immature Granulocytes 0.9 % (0-0.5); % Monocytes 13.2 % (1.7-9.3); % Neutrophils 78.9 % (42.2-75.2); Absolute Basophils 0.1 10^3/uL (0-0.2); Absolute Eosinophils 0.1 10^3/uL (0-0.7); Absolute Immature Granulocytes 0.1 10^3/uL (0-0.05); Absolute Lymphocytes 0.8 10^3/uL (1.2-3.4); Absolute Monocytes 1.8 10^3/uL (0.1-0.6); Absolute Neutrophils 10.5 10^3/uL (1.4-6.5); Hematocrit 42.1 % (39.0-52.0); Hemoglobin 14.6 g/dL (13.0-18.0); Mean Corp Hgb Conc. 34.7 g/dL (33.0-37.0); Mean Corpuscular Hgb 30.5 pg (27.0-31.0); Mean Corpuscular Volume 88.1 fL (80.0-94.0); Mean Platelet Volume 10.8 fL (7.4-10.4); Nucleated Red Blood Cells % 0 % (-); Platelet Count 176 10^3/uL (130-400); Red Blood Cell Count 4.78 10^6/uL (4.70-6.10); Red Cell Dist. Width 13.9 % (11.5-14.5); White Blood Cell Count 13.3 10^3/uL (4.8-10.8)
[2024-05-25] MEDS: NSS 1000 IV ×2 (08:25→17:49)
[2024-05-25 08:40] LABS: ALT (SGPT) 26 U/L (0-50); AST (SGOT) 30 U/L (17-59); Albumin 3.4 g/dl (3.5-5.0); Alkaline Phosphatase 114 U/L (38-126); Blood Urea Nitrogen 36 mg/dl (9-20); Calcium 9.2 mg/dl (8.4-10.2); Carbon Dioxide 26 mmol/L (22-30); Chloride 98 mmol/L (98-107); Estimated Creatinine Clearance 43 ml/min; Glucose 127 mg/dl (70-99); Lipase 38 U/L (23-300); Potassium 3.6 mmol/L (3.5-5.1); Sodium 136 mmol/L (135-145); Total Bilirubin 0.8 mg/dl (0.2-1.3); Total Protein 6.1 g/dl (6.3-8.2); eGFR 39.75
[2024-05-25] MEDS: OMNIPAQUE 50 ML PO (09:20)
[2024-05-25 10:54] LABS: Urine Albumin Trace (Neg - Trace); Urine Bilirubin Negative (Negative); Urine Character Slightly Cloudy (Clear); Urine Color Yellow; Urine Glucose Negative (Negative); Urine Ketone Negative (Negative); Urine Leukocyte 2+ (Negative); Urine Nitrite Positive (Negative); Urine Occult Blood 1+ (Negative); Urine Specific Gravity 1.005 (<1.030); Urine Urobilinogen Negative (Neg - 1+)
[2024-05-25 11:12] LABS: Urine Squamous Cell 16-20 /LPF (Few); Urine Urothelial Cell 0-2 /LPF (FEW)
[2024-05-25 11:13] LABS: Urine Bacteria Many (Negative); Urine White Cell 40-50 /HPF (0-5)
[2024-05-25] MEDS: ROCEPHIN 1000 MG IV (12:51)
[2024-05-25] MEDS: MORPHINE SULFATE 2 MG IV (13:06)
--- NOTE | 2024-05-25 13:07 | W.PN.URO.CBU ---
Today's Communication / Plan
-
Discussed with patient, Hospitalist and ER team
---
Patient not acutely ill, however given his history of recurrent UTI he is best managed as an inpatient
Will begin IV fluids, IV antibiotics and tamsulosin for trial of stone passage: patient has passed many stones spontaneously
Assessment / Plan
-
Partially obstructing 6-7 mm right distal ureteral stone
Right hydroureteronephrosis
Mild leukocytosis
AMISHA
Recent multi-drug resistant E. coli UTI
Diagnosis
-
Date of Service: May 25, 2024
-
Patient Diagnosis:
6-7 mm partially obstructing right distal ureteral stone with associated hydroureteronephrosis
Mild leukocytosis
AMISHA
Afebrile
History of multi-drug resistant E. coli UTI 03/11/24 while admitted with obstructing right ureteral stones
---
History of recurrent UTI: s/p TURP for infectious purposes 2018 (takes methenamine hippurate daily)
Subjective
-
Fatigued, otherwise feels well
No fever or chills
No nausea or vomiting
No dysuria or gross hematuria
Objective
-
Vital Signs
Temp Pulse Resp BP Pulse Ox
98.2 F 83 16 95/59 95
05/25/24 07:48 05/25/24 08:16 05/25/24 08:16 05/25/24 12:00 05/25/24 12:00
Intake and Output
05/24/24 05/25/24 05/26/24
06:59 06:59 06:59
Intake Total 1450 / 1450
Balance 1450 / 1450
Intake:
Oral fluids 450 / 450
IV fluids (Total) 1000 / 1000
NSS 1000 / 1000
Laboratory Results
05/25/24 08:08
05/25/24 08:08
Review of Systems
-
Constitutional: Fatigue
Respiratory: No Symptoms
Cardiac: No Symptoms
Abdomen/GI: No Symptoms
: No Symptoms
Neurological: No Symptoms
Physical Exam
-
General - well developed, well nourished, no acute distress
Abdomen - soft, minimally tender RLQ, no CVAT
Genitalia - normal, no inflammatory changes
Skin - warm & dry with no rash
Neuro - AOx3, no motor deficits
Counseling
-
Await blood and urine culture results
Strain urine
--- NOTE | 2024-05-25 13:09 | HPS.HSE ---
Family Physician
-
Family Physician: Tavo Gerber
Chief Complaint
-
abdominal pain
History of Present Illness
69-year-old male past medical history of nephrolithiasis, recurrent UTI/prostatitis, obstructive sleep apnea, COPD, hypertension, obesity, chronic back pain, GERD, anxiety, presenting with right lower quadrant pain starting 4 nights ago. He had
fever as high as 101. He has history of kidney stones but this pain feels different. He has had decreased appetite. He denies nausea or vomiting. He has increased frequency but denies burning with urination or blood in the urine.
He was recently admitted in March of this year for right-sided flank pain and symptomatic nephrolithiasis. Urology recommended conservative management at that time. He spontaneously passed those kidney stones.
Patient normally takes Bactrim for UTI prophylaxis.
Medical History
Past Medical History
Past Medical History: Reports Other (nephrolithiasis, recurrent UTI/prostatitis, obstructive sleep apnea, COPD, hypertension, obesity, chronic back pain, GERD, anxiety)
Past Surgical History: Reports Other ( Multiple stone procedures, umbilical hernia repair, lumbar fusion,)
Social History
Tobacco: Non-smoker
Alcohol: None
Drug: None
Family History
Family History: Not pertinent
Allergies / Home Medications
Allergies reflects when Allergies were last updated in [facility].
Home Medications with original date entered in [facility]
Allergy/Medication List:
Allergies
Allergy/AdvReac Type Severity Reaction Status Date / Time
cat dander Allergy Unknown Verified 05/25/24 07:51
house dust Allergy Unknown Verified 05/25/24 07:51
pollen extracts Allergy Unknown Verified 05/25/24 07:51
Home Medications
pantoprazole 40 mg tablet,delayed release 40 mg PO DAILYPRN PRN gerd 12/03/13
potassium citrate 10 mEq (1,080 mg) tablet,extended release 20 meq (2 x 10 mEq (1,080 mg)) PO BID #0 tabs 02/01/14
albuterol sulfate 90 mcg/actuation aerosol inhaler (Proventil HFA) 2 puff inhalation R Q4HPRN PRN asthma 08/26/18
ipratropium 0.5 mg-albuterol 3 mg (2.5 mg base)/3 mL nebulization soln 3 ml inhalation R Q4HPRN PRN SOB 08/26/18
alprazolam 1 mg tablet (Xanax) 1 mg PO HSPRN PRN sleep 04/05/23
hydralazine 25 mg tablet 25 mg PO BID Blood Pressure 04/05/23
hydrochlorothiazide 25 mg tablet 25 mg PO QPM Fluid Retention/Swelling 04/05/23
losartan 100 mg tablet 100 mg PO QPM Blood Pressure 04/05/23
sulfamethoxazole 800 mg-trimethoprim 160 mg tablet (Bactrim DS) 1 tab PO BID #10 tabs 03/12/24
Review of Systems
-
History Source: Patient
A 12 point ROS was completed and negative except as noted: Yes
Physical Exam
Vital Signs
Vital Signs
Temp Pulse Resp BP Pulse Ox
98.2 F 83 16 111/75 85
05/25/24 07:48 05/25/24 08:16 05/25/24 08:16 05/25/24 13:00 05/25/24 12:52
Physical Exam
General: Well Developed, Well Nourished and No Apparent Distress
HEENT: NormoCephalic, Moist mucous membranes and Atraumatic
Respiratory: Clear
Cardiac: S1/S2 and Regular Rhythm; No Murmur or Rub
GI: Soft, Non Distended, Normal Bowel Sounds and Tender (RLQ ); No Organomegaly
Rectal: Deferred by Provider
Musculoskeletal: No Clubbing, No Cyanosis and No Edema
Skin: No Rash
Neuro: Nonfocal/grossly intact
Laboratory Results
-
05/25/24 08:08
05/25/24 08:08
Laboratory Results
Total Bilirubin 0.8 mg/dl (0.2-1.3) 05/25/24 08:08
AST 30 U/L (17-59) 05/25/24 08:08
ALT 26 U/L (0-50) 05/25/24 08:08
Alkaline Phosphatase 114 U/L (38-126) 05/25/24 08:08
Lipase 38 U/L (23-300) 05/25/24 08:08
Data Reviewed
-
Lab Data: Labs Reviewed by me
Old Records: Reviewed
Impression/Plan
-
IMPRESSION:
PLAN:
# Chronic 7 mm distal right ureteral calculus with worsening hydronephrosis
-Currently not septic although blood pressure 90s
-UA indicating infection, await urine culture
-CT scan shows moderate to severe hydronephrosis due to 7 mm distal right ureter stone. Stone was seen previously and unchanged however hydronephrosis is worse.
-IV fluids
-Ceftriaxone
-Flomax
-Zofran, Dilaudid
-Urology consulted and wants conservative management
-On potassium history for stone prophylaxis
# Acute kidney injury likely prerenal
-IV fluids
-Hold losartan, hydrochlorothiazide, Bactrim
History of recurrent E. coli UTI/prostatitis
-Urine cultures always been susceptible to cephalosporins
Obstructive sleep apnea
COPD
-Continue albuterol
Essential hypertension
-Hold hydralazine
-Hold losartan, hydrochlorothiazide,
Obesity
Chronic back pain
GERD
-Continue Protonix
Anxiety
-Continue Xanax
Full code
DVT prophylaxis SCDs
N.p.o.
[2024-05-25] MEDS: NSS 500 IV (13:20)
[2024-05-25] MEDS: FLOMAX 0.4 MG PO (17:47)
[2024-05-25] MEDS: DILAUDID 0.5 MG IV ×2 (17:47→22:17)
[2024-05-25] MEDS: UROCIT-K 20 MEQ PO (20:20)
[2024-05-25] MEDS: PROTONIX 40 MG PO (22:17)
[2024-05-25] MEDS: XANAX 1 MG PO (22:17)
[2024-05-25] MEDS: TYLENOL 650 MG PO (23:19)
[2024-05-26] VITALS (21 sets, daily range): BP systolic 94–154; BP diastolic 51–96
[2024-05-26] MEDS: NSS 1000 IV ×4 (01:19→17:44)
[2024-05-26 08:07] LABS: % Basophils 0.3 % (0-2); % Eosinophils 1.4 % (0-6); % Immature Granulocytes 1.1 % (0-0.5); % Lymphocytes 7.3 % (20.5-51.1); % Monocytes 16.2 % (1.7-9.3); % Neutrophils 73.7 % (42.2-75.2); Absolute Eosinophils 0.2 10^3/uL (0-0.7); Absolute Immature Granulocytes 0.1 10^3/uL (0-0.05); Absolute Lymphocytes 0.9 10^3/uL (1.2-3.4); Absolute Monocytes 1.9 10^3/uL (0.1-0.6); Absolute Neutrophils 8.7 10^3/uL (1.4-6.5); Hematocrit 36.2 % (39.0-52.0); Hemoglobin 12.3 g/dL (13.0-18.0); Mean Corpuscular Hgb 30.8 pg (27.0-31.0); Mean Corpuscular Volume 90.5 fL (80.0-94.0); Nucleated Red Blood Cells % 0 % (-); Platelet Count 147 10^3/uL (130-400); Red Cell Dist. Width 14.4 % (11.5-14.5); White Blood Cell Count 11.8 10^3/uL (4.8-10.8)
[2024-05-26] MEDS: UROCIT-K 20 MEQ PO ×2 (08:40→21:15)
[2024-05-26] MEDS: DILAUDID 0.5 MG IV ×2 (08:40→21:14)
[2024-05-26] MEDS: FLOMAX 0.4 MG PO (08:40)
[2024-05-26 09:07] LABS: ALT (SGPT) 22 U/L (0-50); AST (SGOT) 23 U/L (17-59); Albumin 2.6 g/dl (3.5-5.0); Alkaline Phosphatase 74 U/L (38-126); Blood Urea Nitrogen 30 mg/dl (9-20); Calcium 7.8 mg/dl (8.4-10.2); Carbon Dioxide 24 mmol/L (22-30); Chloride 100 mmol/L (98-107); Estimated Creatinine Clearance 50 ml/min; Glucose 90 mg/dl (70-99); Potassium 3.4 mmol/L (3.5-5.1); Sodium 136 mmol/L (135-145); Total Bilirubin 0.6 mg/dl (0.2-1.3); eGFR 49.47
--- NOTE | 2024-05-26 09:07 | W.PN.URO.CBU ---
Today's Communication / Plan
-
Discussed likely persistence of stone in the right distal ureter x 2 months with intermittent fevers
Patient is prepared to proceed with ureteroscopic stone manipulation as stone did not pass overnight and he is now convinced this is likely the same stone that gave him symptoms 2 months ago
---
Discussed the risks of right ureteral injury and potential for worsening infection
Patient provides written and verbal consent for surgery
Will make patient NPO
Assessment / Plan
-
Partially obstructing 6-7 mm right distal ureteral stone
Right hydroureteronephrosis
Mild leukocytosis: improved
AMISHA
Recent multi-drug resistant E. coli UTI
Diagnosis
-
Date of Service: May 26, 2024
-
Patient Diagnosis:
6-7 mm partially obstructing right distal ureteral stone with associated hydroureteronephrosis
Mild leukocytosis
AMISHA
Afebrile
History of multi-drug resistant E. coli UTI 03/11/24 while admitted with obstructing right ureteral stones
---
History of recurrent UTI: s/p TURP for infectious purposes 2018 (takes methenamine hippurate daily)
Subjective
-
Modest RLQ pain
Objective
-
Vital Signs
Temp Pulse Resp BP Pulse Ox
97.8 F 77 24 102/51 94
05/26/24 07:30 05/26/24 07:30 05/26/24 07:30 05/26/24 07:30 05/26/24 07:30
Intake and Output
05/25/24 05/26/24 05/27/24
06:59 06:59 06:59
Intake Total 4330 / 4330
Output Total 800 / 800
Balance 3530 / 3530
Intake:
Oral fluids 3330 / 3330
IV fluids (Total) 1000 / 1000
NSS 1000 / 1000
Output:
Urine, Voided 800 / 800
Laboratory Results
05/26/24 07:21
Review of Systems
-
Constitutional: Fatigue
Respiratory: No Symptoms
Cardiac: No Symptoms
Abdomen/GI: Abdominal Pain
: No Symptoms
Neurological: No Symptoms
Physical Exam
-
General - well developed, well nourished, no acute distress
Abdomen - soft, right lower quadrant discomfort with palpation, no CVAT
Genitalia - normal
Skin - warm & dry with no rash
Neuro - AOx3, no motor deficits
Counseling
-
To OR later today
--- NOTE | 2024-05-26 11:01 | CM ---
Patient seen bedside.
IA completed.
Patient lives with significant other in a 1 story home.
Denies insecurities with food/bills/transportation
patient independent prior to admission and goes to the gym every day.
Patient drives and drive to the hospital.
Patient had VN in the past but denies need for home care.
PCP; Dr Gerber
Pharmacy: [facility]
Plan: home no needs.
[2024-05-26] MEDS: STERILE WATER FOR INJECTION 10 ML IV (12:01)
[2024-05-26] MEDS: ROCEPHIN 1000 MG IV (12:02)
--- NOTE | 2024-05-26 14:21 | W.PN.HOSP.TC ---
Today's Communication/Plan
-
Abx, f/u cultures
OR today
Assessment / Plan
Assessment / Plan
Physical Exam
General: Well Developed, Well Nourished and No Apparent Distress
HEENT: NormoCephalic, Moist mucous membranes and Atraumatic
Respiratory: Clear
Cardiac: S1/S2 and Regular Rhythm; No Murmur or Rub
GI: Soft, Non Distended, Normal Bowel Sounds and Tender (RLQ ); No Organomegaly
Rectal: Deferred by Provider
Musculoskeletal: No Clubbing, No Cyanosis and No Edema
Skin: No Rash
Neuro: Nonfocal/grossly intact
PLAN:
# Chronic 7 mm distal right ureteral calculus with worsening hydronephrosis
-CT scan shows moderate to severe hydronephrosis due to 7 mm distal right ureter stone. Stone was seen previously and unchanged however hydronephrosis is worse.
-IV fluids
-Flomax
-Zofran, Dilaudid
-Urology consulted
�Going to the OR today
� N.p.o.
#Sepsis
#Complicated UTI
-2/2 to above
-History of recurrent E. coli UTI/prostatitis
-Urine cultures always been susceptible to cephalosporins
-abx
-f/u cultures
# Acute kidney injury
�Most likely postrenal secondary to obstruction versus septic ATN
� Monitor with resuscitation, decompression, surgical intervention, IV fluids, antibiotics
-IV fluids
-Hold losartan, hydrochlorothiazide, Bactrim, and nephrotoxic agents
#Hypokalemia
� Monitor and replete
Obstructive sleep apnea
COPD
-Continue albuterol
Essential hypertension
-Hold hydralazine
-Hold losartan, hydrochlorothiazide,
Obesity
Chronic back pain
GERD
-Continue Protonix
Anxiety
-Continue Xanax
Full code
DVT prophylaxis HSQ after procedure
N.p.o.
Anticipated Discharge: 24 - 48 hours
Subjective/Interval History
-
Date of Service: May 26, 2024
Has not passed stone
Objective Data
-
Labs:
Laboratory Results
05/26/24
07:21
WBC 11.8 H
Hgb 12.3 L
Hct 36.2 L
Plt Count 147
Sodium 136
Potassium 3.4 L
Chloride 100
Carbon Dioxide 24
BUN 30 H
Creatinine 1.5 H
Glucose 90
Calcium 7.8 L
Total Bilirubin 0.6
AST 23
ALT 22
Alkaline Phosphatase 74
Vital Signs:
Vital Signs
Temp Pulse Resp BP Pulse Ox
97.8 F 77 24 102/51 94
05/26/24 07:30 05/26/24 07:30 05/26/24 07:30 05/26/24 07:30 05/26/24 08:00
I&O
05/25/24 05/26/24 05/27/24
06:59 06:59 06:59
Intake Total 4330 / 4330
Output Total 800 / 800
Balance 3530 / 3530
Review of Systems
-
History Source: Patient
All other systems: Reviewed and negative
Data Reviewed
-
CT Scan: Report Reviewed by me
Labs: Labs Reviewed by me
--- NOTE | 2024-05-26 17:00 | W.IMMPOSTOP ---
Surgical Immed Post Op Note
-
Primary Surgeon:
hong
Assisting Surgeon:
Pre-op Diagnosis:
obstructing right ureteral stone
Post-op Diagnosis:
obstructing right ureteral stone with pyonephrosis
Procedure Performed:
cysto, right ureteroscopy/laser litho and stent
Anesthesia Type:
gen
Specimen / Cultures:
none
Estimated Blood Loss:
2cc
Complications:
none
Operative Findings:
wire would not pass stone
ureteroscopy performed- stone fragmented- retrograde performed- wire positioned in renal pelvis
sig
pyonephrosis
stent and low placed
pt febrile and mildly hypotensive
to observe in pacu- high risk for sepsis- may need icu
will convert to ertapen.
reviewed with hospitalist
[2024-05-26] MEDS: INVANZ 60 MG IV (17:42)
[2024-05-26 17:59] LABS: Hematocrit 36.4 % (39.0-52.0); Hemoglobin 12.3 g/dL (13.0-18.0); Mean Corp Hgb Conc. 33.8 g/dL (33.0-37.0); Mean Corpuscular Hgb 30.6 pg (27.0-31.0); Mean Corpuscular Volume 90.5 fL (80.0-94.0); Mean Platelet Volume 10.4 fL (7.4-10.4); Platelet Count 143 10^3/uL (130-400); Red Blood Cell Count 4.02 10^6/uL (4.70-6.10); Red Cell Dist. Width 14.6 % (11.5-14.5); White Blood Cell Count 9.5 10^3/uL (4.8-10.8)
[2024-05-26] MEDS: ZOFRAN 4 MG IV (18:11)
[2024-05-26 18:12] LABS: Blood Urea Nitrogen 28 mg/dl (9-20); Calcium 7.4 mg/dl (8.4-10.2); Carbon Dioxide 28 mmol/L (22-30); Chloride 100 mmol/L (98-107); Estimated Creatinine Clearance 47 ml/min; Glucose 78 mg/dl (70-99); Potassium 4.3 mmol/L (3.5-5.1); Sodium 135 mmol/L (135-145); eGFR 45.78
--- NOTE | 2024-05-26 21:00 | PTCARENOTE ---
received report from PACU, pt transferred self from stretcher to bed, AA disoriented to time, HOPE c/o 8/10 R lower back pain, NSR on the monitor with PVC's, +pulses, B/L SCDs, lungs diminished throughout SpO2 94% on RA, round soft non-tender BSx4,
low blood tinged cloudy output with sediment, pt diaphoretic temp 98.4, 18G LAC redressed, 20G R Wrist, NS 120ml, CHG bath, call dupree within reach, pt able to make needs known, otherwise refer to documentation.
[2024-05-26] MEDS: XANAX 1 MG PO (22:35)
[2024-05-27] VITALS (25 sets, daily range): BP systolic 85–124; BP diastolic 47–84; BMI 35.8
--- NOTE | 2024-05-27 00:30 | PTCARENOTE ---
systems reviewed, ITZ 2LNC applied, not changed from previous assessment, pain treated per SEP, Zyprexa for sleep, otherwise refer to documentation
[2024-05-27] MEDS: NSS 1000 IV ×3 (02:07→20:12)
[2024-05-27 03:42] LABS: Hematocrit 35.1 % (39.0-52.0); Hemoglobin 11.5 g/dL (13.0-18.0); Mean Corp Hgb Conc. 32.8 g/dL (33.0-37.0); Mean Corpuscular Hgb 29.8 pg (27.0-31.0); Mean Corpuscular Volume 90.9 fL (80.0-94.0); Mean Platelet Volume 10.6 fL (7.4-10.4); Platelet Count 146 10^3/uL (130-400); Red Blood Cell Count 3.86 10^6/uL (4.70-6.10); Red Cell Dist. Width 14.8 % (11.5-14.5); White Blood Cell Count 17.1 10^3/uL (4.8-10.8)
[2024-05-27 03:59] LABS: ALT (SGPT) 24 U/L (0-50); AST (SGOT) 26 U/L (17-59); Albumin 2.6 g/dl (3.5-5.0); Alkaline Phosphatase 74 U/L (38-126); Blood Urea Nitrogen 24 mg/dl (9-20); Calcium 7.3 mg/dl (8.4-10.2); Carbon Dioxide 24 mmol/L (22-30); Chloride 105 mmol/L (98-107); Estimated Creatinine Clearance 50 ml/min; Glucose 141 mg/dl (70-99); Magnesium 1.7 mg/dl (1.6-2.3); Potassium 4.5 mmol/L (3.5-5.1); Sodium 139 mmol/L (135-145); Total Bilirubin 0.4 mg/dl (0.2-1.3); eGFR 49.47
[2024-05-27] MEDS: CALCIUM GLUCONATE 100 IV (04:42)
--- NOTE | 2024-05-27 07:45 | CON.INTV ---
Consultation
Consultation Request
Date/Time Consultation Requested: 05/27/2024-7 AM
Date/Time Consultation Performed: 05/27/2024-7:30 AM
Requesting Provider: Hospitalist
Performing Provider: Dr. Ballard
Reason for Consultation: Postop critical care management
Medical History
-
Chief Complaint: Obstructing right ureteral stone with pyelonephritis
History of Present Illness:
69-year-old male with a history of asthma, recurrent UTI/prostatitis, nephrolithiasis, ITZ, hypertension, obesity, chronic back pain, GERD and anxiety who presented with right lower quadrant pain, fevers, and noted to have right ureteral stone with
obstruction who went to the OR for urologic uteroscopy, stone fragmentation and drainage-cuff matcher consulted for sepsis/critical care management 05/27/2024. Patient is feeling improved this morning. He denies any shortness of breath at rest,
increased wheezing, chest pain, chest tightness, productive cough, abdominal pain, nausea, leg swelling or weakness.
Past Medical History
Past Medical History: None (ITZ. Hypertension. Hyperlipidemia. Asthma on Trelegy. Former smoker. Seasonal allergies. Obesity. Renal calculi. Chronic UTI/prostatitis. Spinal fusion. Tonsillectomy.)
Social History
Tobacco: Former Smoker (Quit over 30 years ago)
Alcohol: None
Drug: None
Living: With Family
Occupational Exposures: No known asbestos exposure
Environmental Exposures: No known tuberculosis exposure
Family History
Family History: Other (Father-hypertension, diabetes. Mother hypertension, asthma)
Allergies / Home Medications
Allergies
Allergy/AdvReac Type Severity Reaction Status Date / Time
cat dander Allergy Unknown Verified 05/25/24 07:51
house dust Allergy Unknown Verified 05/25/24 07:51
pollen extracts Allergy Unknown Verified 05/25/24 07:51
Home Medications
�Medication �Instructions �Recorded �Confirmed �Last Taken �Type
pantoprazole 40 mg tablet,delayed 40 mg PO DAILYPRN PRN gerd 0505/25/24 09/04/18 07:00 History
release
potassium citrate 10 mEq (1,080 20 meq (2 x 10 mEq (1,080 mg)) PO 02/01/14 05/25/24 03/10/24 Rx
mg) tablet,extended release BID #0 tabs
albuterol sulfate 90 mcg/actuation 2 puff inhalation R Q4HPRN PRN 08/26/18 05/25/24 08/25/18 08:00 History
aerosol inhaler (Proventil HFA) asthma
ipratropium 0.5 mg-albuterol 3 mg 3 ml inhalation R Q4HPRN PRN SOB 08/26/18 05/25/24 08/25/18 08:00 History
(2.5 mg base)/3 mL nebulization
soln
alprazolam 1 mg tablet (Xanax) 1 mg PO HSPRN PRN sleep 04/05/23 05/25/24 03/09/24 History
hydralazine 25 mg tablet 25 mg PO BID Blood Pressure 04/05/23 05/25/24 03/10/24 History
hydrochlorothiazide 25 mg tablet 25 mg PO QPM Fluid 04/05/23 05/25/24 03/10/24 History
Retention/Swelling
losartan 100 mg tablet 100 mg PO QPM Blood Pressure 04/05/23 05/25/24 03/10/24 History
sulfamethoxazole 800 1 tab PO BID Infection 05/26/24 05/25/24 Unknown History
mg-trimethoprim 160 mg tablet
(Bactrim DS)
Review of Systems
-
Unable to Obtain full review of systems at this time due to: Other (Per HPI)
Vitals / Labs / Diagnostic Testing
Vital Signs
Temp Pulse Resp BP Pulse Ox
97.9 F 69 17 90/55 96
05/27/24 04:00 05/27/24 06:00 05/27/24 06:00 05/27/24 06:00 05/27/24 03:06
Lab Data
05/27/24 03:11
05/27/24 03:11
Microbiology
05/25/24 10:45 Urine Urine Culture - Preliminary
Diagnostic Testing:
Physical Exam
-
Exam:
Well-nourished and well-developed in no apparent distress
HEENT-atraumatic, normocephalic
Neck-supple, no JVD, no bruit
Heart-regular rate and rhythm-no murmurs, rubs or gallops
Chest-clear to auscultation, no wheezes, crackles
Back-no tenderness
Abdomen-soft, nontender, nondistended, no hepatosplenomegaly
Extremities-no cyanosis, clubbing, edema and good peripheral pulses
Integument-intact, no rashes, lesions or ecchymosis
Neurology-alert and oriented, nonfocal motor and sensory exam
Assessment
-
69-year-old male with a history of asthma, recurrent UTI/prostatitis, nephrolithiasis, ITZ, hypertension, obesity, chronic back pain, GERD and anxiety who presented with right lower quadrant pain, fevers, and noted to have right ureteral stone with
obstruction who went to the OR for urologic uteroscopy, stone fragmentation and drainage-cuff matcher consulted for sepsis/critical care management 05/27/2024.
Right ureteral calculus with hydronephrosis and pyelonephritis
Status post stone fragmentation and drainage-Dr. Zhang-05/26/2024
Sepsis with hypotension responding to fluids
AMISHA
Leukocytosis
Whfhtv-wjstoyqaix-fjxjodlnbj 11.5
Hyperglycemia
Hypocalcemia
Conditions present prior to admission:
ITZ-on AutoPap-average 10.6 cm
Hypertension.
Hyperlipidemia.
COPD/asthma overlap on Trelegy 100 and albuterol as needed
Former smoker.
Seasonal allergies.
Obesity.
Renal calculi.
Chronic UTI/prostatitis.
Spinal fusion. Tonsillectomy.
Plan
Admit patient to medical intensive care unit for persistent hypotension despite fluid resuscitation potentially requiring pressors
Supplement oxygen as needed
High flow oxygen if needed
BiPAP if necessary
Aspiration precautions
Nebulizers if needed
Obtain cultures
Blood cultures-pending
Urine [id number]-jqrgmla-[id number]/19/[id number]-bzui-bhqxfipe bacilli
Urine culture 03/10/24-E. coli
Empiric antibiotics
Monitor leukocytosis
Fluid resuscitation with 30 mL/kg crystalloid-preferably lactated ringer-(less AMISHA) with subsequent boluses as needed
Monitor lactate
Follow CVP if possible
Attempt noninvasive bedside tissue perfusion evaluation to see if fluid bolus responsive
Measure pulse pressure and stroke volume variation if patient on ventilator, passively breathing without arrhythmia and with temporary large tidal volume ventilation and if > 13% then likely fluid bolus responsive
If patient active then consider measuring bedside leg lift for 3 minutes and if cardiac output increases or if there is a rise of 2-4 on end-tidal CO2 then fluid bolus
If bedside ultrasound available then measure IVC diameter variation to evaluate for fluid bolus responsiveness
Begin pressors as needed for MAP goal of 65-Norepinephrine first, then Vasopressin and consider Angiotensin II if continues to be hypotensive
Consider methylene blue if available-specific inhibitor of induced nitric oxide synthase iNOS and its downstream enzyme soluble guanylate cyclase-noninferiority study shown to reduce time to vasopressor discontinuation, decreased ICU length of stay,
hospital stay but no change in mortality-published Critical Care 09/16/2022
DVT prophylaxis-on heparin
Early nutrition if possible
Early mobilization/bedside range of motion
If weaned off pressors and remains hemodynamically stable then transfer out of ICU-call pulmonary if respiratory issues arise
The patient was last seen in Dr. Ballard's office by Minnie PEREZ 05/20/2024 for asthma check and CPAP compliance-instructed to follow-up yearly
Critical care statement: A total of 55 minutes of critical care time was provided for this patient today. This includes management of unstable vital signs, evaluation of the patient at bedside, reviewing the patient's pertinent medical records
including radiographs, pressor management, microbiology, laboratory evaluations, and discussion with primary team, consultants, pharmacy, nutrition, physical therapy, case management, charge nurse, critical care nursing, and respiratory therapy.
Diagnostic data:
Chest x-ray 11/14/2012-NAD, minimal bibasilar atelectasis
CT abdomen and pelvis 05/25/2024-moderate to severe hydronephrosis on the right secondary to 7 mm calculus distal right ureter
CT abdomen/pelvis 03/10/24: Mild dependent atelectasis within the posterior lower lungs.� Linear densities within the posterior inferior aspect of the right middle lobe within the anterior lateral and inferior aspect of the right lower lobe, stable,
compatible with linear scarring.� Thin linear scars within the visualized left lower lobe, stable.
Spirometry 09/17/23- FVC 2.71/72%, FEV1 1.81/66%, ratio 67%, no significant BD response, post BD results FVC 2.71/72%, FEV1 1.87/68%, ratio 69%. Moderate obstruction and suggestive of mild restrictive pattern.
[place] 12/09/23: FVC 2/53%, FEV1 1.31/48%, ratio 66%, no significant BD response.� Severe obstruction and suggestive of moderate restrictive pattern.
PFT 05/20/2024: FVC 3.28/90%, FEV1 1.93/73%, ratio 59%, significant BD response in FEV1 (16%), post BD results FVC 3.33/92%, FEV1 2.24/85%, ratio 67%, TLC 5.70/93%, DLCO 20.59/91%.� Mild obstruction.
HST 09/30/23: AHI 12.8 event/hour, O2 kali 78%, REM specific index 23.4 events/hour, 19 minutes of the study time was spent with O2 below 88%.
Data Reviewed
-
PFT: Report reviewed by me
EKG: Report reviewed by me
Radiology: Report reviewed by me
CT Scan: Report reviewed by me
Medical Tests (Nuc Med, Echo etc): Report reviewed by me
Labs: Labs reviewed by me
Old Records: Reviewed
Critical Care Time (in minutes): 55
[2024-05-27] MEDS: UROCIT-K 20 MEQ PO (08:45)
[2024-05-27] MEDS: HEPARIN 5000 UNITS SC ×2 (08:57→16:12)
[2024-05-27] MEDS: FLOMAX 0.4 MG PO (08:57)
--- NOTE | 2024-05-27 09:00 | PTCARENOTE ---
Rec'd pt at 0745 sleeping. Awakens easily to verbal stimuli. Is alert and oriented. Will get easily frustrated. At first was angry because he was ordered a clear liquid diet and wanted a regular diet. Got order changed and Regular diet ordered.
While arguing with this RN about his diet he reached into his bag from home-pulled out his inhaler and used it- when told he cannot just take his home meds as they may interfere with what we are already giving him. Got very upset and argued that he
is ordered Trelegyat home and we 'do not carry that here'.Stated 'I am the patient, I am the customer'. Explanations and reassurance given and pt did calm somewhat. Skin is pale pink wm and dry. Respirs - rec'd pt on 2l nc with sats of 96%- changed
at 0800 to RA with sats of 95%. Bs are sl decreased at the bases but clear. Monitor SBrady with BB config and PAC's. VS as documented. BP in the 90's now that he is awake. Was dipping in the 80's sleeping. + pulses. Abd is round and soft with + BS.
Denies pain or nausea. Corbett intact for bloody tinged yellow urine. IV NSS infusing via R wrist at 120 ml/hr. Capped int intact L arm. Pt assisted oob to the chair for breakfast. Gait is weak but denied dizziness- however once in the chair stated '
I didn't think I was going to be eating in the chair- I have never eaten in a chair, I want to eat in bed. Refused to sit in the chair so after 5 minutes assisted back to bed and is resting in bed currently. Dr. Zhang in to see pt. Plan of care
reviewed with pt and call dupree in reach.
--- NOTE | 2024-05-27 09:21 | W.PN.URO.CBU ---
Today's Communication / Plan
-
continue ivr/iv antibx and low
await cx's
Assessment / Plan
-
Partially obstructing 6-7 mm right distal ureteral stone
Right hydroureteronephrosis
chronic ecoli bacteruria
s/p ureteroscopy and stent 05/26- post op sepsis
pt improved
bp's low- but stable
continue ertap- await cx's
continue low
Diagnosis
-
Date of Service: May 27, 2024
-
Patient Diagnosis:
nephrolithiasis with obstructing right ureteral stone
chronic ecoli bacteruria
post op sepsis
POST OP
05/26- right ureteroscopy/laser litho and stent
Subjective
-
post op pt had high fver and low BP
admitted to ICU
afebrile and HD stable- although BP's low- has not required pressors
wbc up
cx's pending
pt feels ok
Objective
-
Vital Signs
Temp Pulse Resp BP Pulse Ox
97.9 F 69 17 90/55 96
05/27/24 04:00 05/27/24 06:00 05/27/24 06:00 05/27/24 06:00 05/27/24 03:06
Intake and Output
05/26/24 05/27/24 05/28/24
06:59 06:59 06:59
Intake Total 4330 / 4330 3240 / 3240
Output Total 800 / 800 2480 / 2480
Balance 3530 / 3530 760 / 760
Intake:
Oral fluids 3330 / 3330 960 / 960
IV fluids (Total) 1000 / 1000 2280 / 2280
NSS 1000 / 1000 1200 / 1200
Output:
Urine, Low 1500 / 1500
Urine, Voided 800 / 800 980 / 980
Laboratory Results
05/27/24 03:11
05/27/24 03:11
Review of Systems
-
Constitutional: Fatigue
Respiratory: No Symptoms
Cardiac: No Symptoms
Abdomen/GI: No Symptoms
: Other (low)
Musculoskeletal: Muscle Pain
Skin: No Symptoms
Neurological: No Symptoms
Physical Exam
-
General - no acute distress
Abdomen - soft, non-tender
Genitalia - normal- low in place
--- NOTE | 2024-05-27 10:00 | PTCARENOTE ---
Good appetite for breakfast. Dozing currently. No other changes
--- NOTE | 2024-05-27 12:30 | PTCARENOTE ---
Has slept most of the morning. Encouraged to try to sit up in a chair but wanted to rest and do it later. No other changes.
--- NOTE | 2024-05-27 14:03 | W.PN.HOSP.TC ---
Today's Communication/Plan
-
iv abx
f/u cultures
dg if bps stable
Assessment / Plan
Assessment / Plan
Physical Exam
General: Well Developed, Well Nourished and No Apparent Distress
HEENT: NormoCephalic, Moist mucous membranes and Atraumatic
Respiratory: Clear
Cardiac: S1/S2 and Regular Rhythm; No Murmur or Rub
GI: Soft, Non Distended, Normal Bowel Sounds and Tender (RLQ ); No Organomegaly
Rectal: Deferred by Provider
Musculoskeletal: No Clubbing, No Cyanosis and No Edema
Skin: No Rash
Neuro: Nonfocal/grossly intact
PLAN:
# Chronic 7 mm distal right ureteral calculus with worsening hydronephrosis
-CT scan shows moderate to severe hydronephrosis due to 7 mm distal right ureter stone. Stone was seen previously and unchanged however hydronephrosis is worse.
-s/p ureteroscopy and stent 05/26- post op sepsis
-IV fluids
-Flomax
-Zofran, Dilaudid
� Urology on board
#Sepsis
#Complicated UTI
-2/2 to above
-History of recurrent E. coli UTI/prostatitis
-Urine cultures always been susceptible to cephalosporins
-Ertapanem for now
-f/u cultures
-IVF Prn
# Acute kidney injury
�Most likely postrenal secondary to obstruction versus septic ATN
� Monitor with resuscitation, decompression, surgical intervention, IV fluids, antibiotics
-IV fluids
-Hold losartan, hydrochlorothiazide, Bactrim, and nephrotoxic agents
#Hypokalemia
� Monitor and replete
Obstructive sleep apnea
COPD
-Continue albuterol
Essential hypertension
-Hold hydralazine
-Hold losartan, hydrochlorothiazide,
Obesity
Chronic back pain
GERD
-Continue Protonix
Anxiety
-Continue Xanax
Full code
DVT prophylaxis HSQ after procedure
Total time spent on today's encounter was 50 minutes which included time spent in counseling the patient/family regarding diagnosis and treatment plan as listed above, goals of care, and symptom management. Case was discussed with nursing staff,
specialists, and care coordinators/case management. All labs and imaging personally reviewed by me. Remainder the time spent in detailed review of previous records, lab data, imaging, and other medical provider documentation.
Anticipated Discharge: > 48 hours
Subjective/Interval History
-
Date of Service: May 27, 2024
Doing well, although mildly low blood pressures
Objective Data
-
Labs:
Laboratory Results
05/27/24
03:11
WBC 17.1 H
Hgb 11.5 L
Hct 35.1 L
Plt Count 146
Sodium 139
Potassium 4.5
Chloride 105
Carbon Dioxide 24
BUN 24 H
Creatinine 1.5 H
Glucose 141 H
Calcium 7.3 L
Total Bilirubin 0.4
AST 26
ALT 24
Alkaline Phosphatase 74
Vital Signs:
Vital Signs
Temp Pulse Resp BP Pulse Ox
97.6 F 74 20 103/63 94
05/27/24 11:40 05/27/24 13:00 05/27/24 13:00 05/27/24 13:00 05/27/24 10:02
I&O
05/26/24 05/27/24 05/28/24
06:59 06:59 06:59
Intake Total 4330 / 4330 3240 / 3360 1330 / 1330
Output Total 800 / 800 2480 / 2480 610 / 610
Balance 3530 / 3530 760 / 880 720 / 720
Review of Systems
-
History Source: Patient
All other systems: Not reviewed unless documented
Physical Exam
-
General: Well Developed, Well Nourished, No Apparent Distress, Comfortable and Conversant; Negative Respiratory Distress
HEENT: Normocephalic, Atraumatic, Nose Appears Normal and Ears Appear Normal; Negative Oxygen
Respiratory: Clear to Auscultation and Non Labored Respirations; Negative Accessory Resp Muscle Use
Cardiac: Regular Rhythm and S1/S2
GI: Soft, Nontender, Nondistended and Normal Bowel Sounds
Skin: Warm and Dry
Neuro: Awake, Alert, Oriented, AO x 3 and Nonfocal/Grossly Intact
Psych: Calm and Intact Judgement/Insight
Data Reviewed
-
CT Scan: Report Reviewed by me
Labs: Labs Reviewed by me
--- NOTE | 2024-05-27 15:41 | CM ---
CM following re: discharge planning.
Reviewed pt's chart, met with pt.
Pt is POD#1 s/p ureteroscopy and stent. Pt reports he feels much better.
Pt reports he lives alone, has a girlfriend and she mostly spend her time with the pt. 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
D/C plan: home with anticipated no needs. Girlfriend to transport at discharge.
CM will follow with discharge plan updates as hospitalization progresses
[2024-05-27] MEDS: DILAUDID 0.5 MG IV (16:11)
--- NOTE | 2024-05-27 16:30 | PTCARENOTE ---
Pt resting most of the afternoon. Finally convinced pt to get oob. Prior to getting oob c/o 02/13 RLQ abd pain- Medicated with Dilaudid 0.5 mg IV. Pt then assisted oob to the chair. Gait initially a little unsteady then became more steady and denies
dizziness. VS as documented. Corbett draining sl bloody tinged yellow urine with sediment. IV NS infusing at 120 ml/hr via R wrist IV Site. Currently oob in the chair. Girlfriend visiting. Call dupree in reach. Advised pt to ring to get up
[2024-05-27] MEDS: INVANZ 60 MG IV (18:23)
--- NOTE | 2024-05-27 18:46 | PTCARENOTE ---
Good appetite for dinner. Resting back in bed. States earlier Santiagoid took his RLQ abd discomfort down to a 4. Call dupree in reach
--- NOTE | 2024-05-27 19:40 | PTCARENOTE ---
Resumed care of pt this evening. Received pt A&Ox3, pt able to move all 4 extremities, and can make needs known. Pt is NSR on tele monitor, has no edema, and palpable pedal pulses. Pt on RA satting at 94% pulse ox. On auscultation pt lungs sound
diminished at the bases bilaterally, otherwise clear. Pt's abdomen is round, soft, and has active BS. Pt has low in place draining rach colored urine. Skin is C/D/I. Pt denies pain at this time.
--- NOTE | 2024-05-27 21:00 | PTCARENOTE ---
IV fluids turned off per order.
[2024-05-27] MEDS: PROTONIX 40 MG PO (21:58)
[2024-05-27] MEDS: XANAX 1 MG PO (22:00)
[2024-05-28] VITALS (16 sets, daily range): BP systolic 99–157; BP diastolic 55–92; BMI 36.0
[2024-05-28] MEDS: HEPARIN 5000 UNITS SC ×3 (00:34→15:33)
--- NOTE | 2024-05-28 01:30 | PTCARENOTE ---
Upon reassessment pt is resting comfortably.
[2024-05-28 05:37] LABS: Hematocrit 30.9 % (39.0-52.0); Hemoglobin 10.7 g/dL (13.0-18.0); Mean Corp Hgb Conc. 34.6 g/dL (33.0-37.0); Mean Corpuscular Hgb 30.8 pg (27.0-31.0); Platelet Count 172 10^3/uL (130-400); Red Blood Cell Count 3.47 10^6/uL (4.70-6.10); Red Cell Dist. Width 14.6 % (11.5-14.5); White Blood Cell Count 16.2 10^3/uL (4.8-10.8)
[2024-05-28 06:09] LABS: ALT (SGPT) 26 U/L (0-50); AST (SGOT) 27 U/L (17-59); Albumin 2.4 g/dl (3.5-5.0); Alkaline Phosphatase 77 U/L (38-126); Blood Urea Nitrogen 31 mg/dl (9-20); Calcium 7.7 mg/dl (8.4-10.2); Carbon Dioxide 24 mmol/L (22-30); Chloride 104 mmol/L (98-107); Estimated Creatinine Clearance 65 ml/min; Glucose 101 mg/dl (70-99); Potassium 3.8 mmol/L (3.5-5.1); Sodium 138 mmol/L (135-145); Total Bilirubin 0.2 mg/dl (0.2-1.3); Total Protein 4.8 g/dl (6.3-8.2); eGFR > 60.00
--- NOTE | 2024-05-28 07:33 | W.PN.INTV ---
Today's Communication / Plan
Recommendations
Decrease IV fluids
Wean oxygen
Increase activity
Continue antibiotics
Stable for transfer out of ICU-call pulmonary if respiratory issues arise
Assessment
-
69-year-old male with a history of asthma, recurrent UTI/prostatitis, nephrolithiasis, ITZ, hypertension, obesity, chronic back pain, GERD and anxiety who presented with right lower quadrant pain, fevers, and noted to have right ureteral stone with
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
Right ureteral calculus with hydronephrosis and pyelonephritis
Status post stone fragmentation and drainage-Dr. Zhang-05/26/2024
Sepsis with hypotension responding to fluids
AMISHA
Leukocytosis
Pcmiuh-zuwmbjxhzn-tzfpftqysa 11.5
Hyperglycemia
Hypocalcemia
Conditions present prior to admission:
ITZ-on AutoPap-average 10.6 cm
Hypertension.
Hyperlipidemia.
COPD/asthma overlap on Trelegy 100 and albuterol as needed
Former smoker.
Seasonal allergies.
Obesity.
Renal calculi.
Chronic UTI/prostatitis.
Spinal fusion. Tonsillectomy.
Plan
Hemodynamics have improved
Supplemental oxygen as needed-wean
Aspiration precautions
Nebulizers if needed-currently not bronchospastic
Cultures reviewed
Urine culture 05/25/2024-E. coli
Blood cultures-no growth
Note previous urine culture 03/10/24-E. coli
Empiric antibiotics continue
Monitor leukocytosis
Decrease IV fluids
Norepinephrine weaned
Trended lactate
DVT prophylaxis-on heparin
Begin nutrition
Increase activity
If weaned off pressors and remains hemodynamically stable then transfer out of ICU-call pulmonary if respiratory issues arise
The patient was last seen in Dr. Ballard's office by Minnie PEREZ 05/20/2024 for asthma check and CPAP compliance-instructed to follow-up yearly
Reviewed the patient's pertinent medical records including radiographs, pressor management, microbiology, laboratory evaluations, and discussion with primary team, consultants, pharmacy, nutrition, physical therapy, case management, charge nurse,
critical care nursing, and respiratory therapy.
Diagnostic data:
Chest x-ray 11/14/2012-NAD, minimal bibasilar atelectasis
CT abdomen and pelvis 05/25/2024-moderate to severe hydronephrosis on the right secondary to 7 mm calculus distal right ureter
CT abdomen/pelvis 03/10/24: Mild dependent atelectasis within the posterior lower lungs.� Linear densities within the posterior inferior aspect of the right middle lobe within the anterior lateral and inferior aspect of the right lower lobe, stable,
compatible with linear scarring.� Thin linear scars within the visualized left lower lobe, stable.
Spirometry 09/17/23- FVC 2.71/72%, FEV1 1.81/66%, ratio 67%, no significant BD response, post BD results FVC 2.71/72%, FEV1 1.87/68%, ratio 69%. Moderate obstruction and suggestive of mild restrictive pattern.
[place] 12/09/23: FVC 2/53%, FEV1 1.31/48%, ratio 66%, no significant BD response.� Severe obstruction and suggestive of moderate restrictive pattern.
PFT 05/20/2024: FVC 3.28/90%, FEV1 1.93/73%, ratio 59%, significant BD response in FEV1 (16%), post BD results FVC 3.33/92%, FEV1 2.24/85%, ratio 67%, TLC 5.70/93%, DLCO 20.59/91%.� Mild obstruction.
HST 09/30/23: AHI 12.8 event/hour, O2 kali 78%, REM specific index 23.4 events/hour, 19 minutes of the study time was spent with O2 below 88%.
Subjective Dataa
Subjective Data
Date of Service:
Date of Service: May 28, 2024
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
Subjective:
Feels well, denies any shortness of breath, chest pain, chest tightness, abdominal pain, back pain or leg swelling
Review of Systems
General: Other (Per HPI)
Objective Data
Data Reviewed
Vital Signs / I&O / Oxygen:
Vital Signs
Temp Pulse Resp BP Pulse Ox
98.1 F 70 18 123/74 95
05/28/24 03:06 05/28/24 06:00 05/28/24 06:00 05/28/24 06:00 05/28/24 06:00
Intake and Output
05/27/24 05/28/24 05/29/24
06:59 06:59 06:59
Intake Total 3240 / 3360 3020 / 3020
Output Total 2480 / 2480 2984 / 2984
Balance 760 / 880 36 / 36
SaO2 95
Nasal Cannula flow liters per 2
minute
Physical Exam
General: Respiratory Distress and Comfortable
HEENT: Normocephalic, Anicteric and Moist Mucous Membranes
Cardiovascular: Regular Rhythm and Murmur
Respiratory: Wheeze (n), Crackles (Rare basilar), Rhonchi (n), Non-Labored Respirations, Accessory Resp Muscle Use (n) and Stridor (n)
GI: Soft, Non Distended and Non Tender
Neurology: Awake, Alert and No Motor Deficits
Skin: Warm, Good Color, Cyanosis (n), Jaundice (n) and Rash (n)
Labs/Micro/Reports
Lab Data
05/28/24 05:27
05/28/24 05:27
Microbiology
05/25/24 10:45 Urine Urine Culture - Preliminary
Gram negative bacilli
05/26/24 21:24 Blood/Venous Blood Culture - Preliminary
No Growth in 24 hours- Final report to follow
05/26/24 11:12 Blood/Venous Blood Culture - Preliminary
No Growth in 24 hours- Final report to follow
05/26/24 10:04 Blood/Venous Blood Culture - Preliminary
No Growth in 24 hours- Final report to follow
[2024-05-28] MEDS: FLOMAX 0.4 MG PO (08:18)
--- NOTE | 2024-05-28 11:19 | W.PN.URO.CBU ---
Today's Communication / Plan
-
low out
out of ICU
continue iv antibx
Assessment / Plan
-
Partially obstructing 6-7 mm right distal ureteral stone
Right hydroureteronephrosis
chronic ecoli bacteruria
s/p ureteroscopy and stent 05/26- post op sepsis
pt doing well
stable for ICU transfer
low out today
continue ertapen for now
has generally responded to bactrim as outpatient
will follow
Diagnosis
-
Date of Service: May 28, 2024
-
Patient Diagnosis:
nephrolithiasis with obstructing right ureteral stone
chronic ecoli bacteruria
post op sepsis
POST OP
05/26- right ureteroscopy/laser litho and stent
Subjective
-
pt feels good
urine clear
afebrile
BP better
wbc and cr declining
ucx + for same ecoli
Objective
-
Vital Signs
Temp Pulse Resp BP Pulse Ox
98 F 70 18 123/74 95
05/28/24 07:35 05/28/24 06:00 05/28/24 06:00 05/28/24 06:00 05/28/24 06:00
Intake and Output
05/27/24 05/28/24 05/29/24
06:59 06:59 06:59
Intake Total 3240 / 3360 3020 / 3020
Output Total 2480 / 2480 2984 / 2984
Balance 760 / 880 36 / 36
Intake:
Oral fluids 960 / 960 1290 / 1290
IV fluids (Total) 2280 / 2400 1680 / 1680
NSS 1200 / 1320 1680 / 1680
IV piggybacks 50 / 50
Output:
Urine, Low 1500 / 1500 2984 / 2984
Urine, Voided 980 / 980
Laboratory Results
05/28/24 05:27
05/28/24 05:27
Review of Systems
-
Constitutional: Fatigue
Respiratory: No Symptoms
Cardiac: No Symptoms
Abdomen/GI: No Symptoms
: Other (low)
Physical Exam
-
General - no acute distress
Abdomen - soft, non-tender, positive bowel sounds
--- NOTE | 2024-05-28 12:16 | PTCARENOTE ---
pt telemetry status , Corbett cath DC at 12:00 , urine positive for Ecoli , Dr Zhang aware , pt tolerating diet
--- NOTE | 2024-05-28 12:30 | CM ---
Addendum entered by Sriram Castro 05/28/24 14:06:
IMM reviewed, placed on chart, pt has a copy.
Original Note:
CM following re: discharge planning.
Reviewed pt's chart, met with pt.
Pt is POD#2 s/p ureteroscopy and stent. Pt reports he feels well.
Pt reports he lives alone, has a girlfriend and she mostly spend her time with the pt. Pt described himself as independent in all areas [employer], goes to Gym daily and [place]
D/C plan: home with anticipated no needs. Girlfriend to transport at discharge.
CM will follow with discharge plan updates as hospitalization progresses
--- NOTE | 2024-05-28 13:38 | W.PN.HOSP.TC ---
Addendum entered and electronically signed by Aniket Yeh MD 05/28/24 16:50:
Acute UTI
Original Note:
Today's Communication/Plan
-
switch to Ceftriaxone
f/u urology recs
f/u final cultures
monitor BP, DG from ICU
monitor renal function, WBC
Assessment / Plan
Assessment / Plan
Physical Exam
General: Well Developed, Well Nourished and No Apparent Distress
HEENT: NormoCephalic, Moist mucous membranes and Atraumatic
Respiratory: Clear
Cardiac: S1/S2 and Regular Rhythm; No Murmur or Rub
GI: Soft, Non Distended, Normal Bowel Sounds and Tender (RLQ ); No Organomegaly
Rectal: Deferred by Provider
Musculoskeletal: No Clubbing, No Cyanosis and No Edema
Skin: No Rash
Neuro: Nonfocal/grossly intact
PLAN:
# Chronic 7 mm distal right ureteral calculus with worsening hydronephrosis
-CT scan shows moderate to severe hydronephrosis due to 7 mm distal right ureter stone. Stone was seen previously and unchanged however hydronephrosis is worse.
-s/p ureteroscopy and stent 05/26- post op sepsis
-IV fluids
-Flomax
-Zofran, Dilaudid
� Urology on board
#Sepsis
#Complicated UTI
-BPs improved
-2/2 to above
-History of recurrent E. coli UTI/prostatitis
-Urine cultures always been susceptible to cephalosporins
-Urine cultures - Ecoli - switch back to Ceftriaxone
-f/u cultures including blood
-IVF Prn
# Acute kidney injury, improving
�Most likely postrenal secondary to obstruction versus septic ATN
� Monitor with resuscitation, decompression, surgical intervention, IV fluids, antibiotics
-IV fluids
-Hold losartan, hydrochlorothiazide, Bactrim, and nephrotoxic agents
#Hypokalemia
� Monitor and replete
Obstructive sleep apnea
COPD
-Continue albuterol
Essential hypertension
-Hold hydralazine
-Hold losartan, hydrochlorothiazide,
Obesity
Chronic back pain
GERD
-Continue Protonix
Anxiety
-Continue Xanax
Full code
DVT prophylaxis HSQ after procedure
Anticipated Discharge: Within 24 hours
Subjective/Interval History
-
Date of Service: May 28, 2024
no acute events
Objective Data
-
Labs:
Laboratory Results
05/28/24
05:27
WBC 16.2 H
Hgb 10.7 L
Hct 30.9 L
Plt Count 172
Sodium 138
Potassium 3.8
Chloride 104
Carbon Dioxide 24
BUN 31 H
Creatinine 1.2
Glucose 101 H
Calcium 7.7 L
Total Bilirubin 0.2
AST 27
ALT 26
Alkaline Phosphatase 77
Vital Signs:
Vital Signs
Temp Pulse Resp BP Pulse Ox
98 F 74 12 111/73 96
05/28/24 11:19 05/28/24 12:04 05/28/24 10:00 05/28/24 12:04 05/28/24 08:00
I&O
05/27/24 05/28/24 05/29/24
06:59 06:59 06:59
Intake Total 3240 / 3360 3020 / 3020
Output Total 2480 / 2480 2984 / 3084 550 / 550
Balance 760 / 880 36 / -64 -550 / -550
Review of Systems
-
History Source: Patient
All other systems: Not reviewed unless documented
Physical Exam
-
General: Well Developed, Well Nourished, No Apparent Distress, Comfortable and Conversant; Negative Respiratory Distress
HEENT: Normocephalic, Atraumatic, Nose Appears Normal and Ears Appear Normal; Negative Oxygen
Respiratory: Clear to Auscultation and Non Labored Respirations; Negative Accessory Resp Muscle Use
Cardiac: Regular Rhythm and S1/S2
GI: Soft, Nontender, Nondistended and Normal Bowel Sounds
Skin: Warm and Dry
Neuro: Awake, Alert, Oriented, AO x 3 and Nonfocal/Grossly Intact
Psych: Calm and Intact Judgement/Insight
Data Reviewed
-
CT Scan: Image personally visualized and interpreted and Report Reviewed by me
Labs: Labs Reviewed by me
--- NOTE | 2024-05-28 13:51 | PN.CDI ---
CDI
- -
CDI:
Physician Documentation Request
Admit Date: 05/25/24 13:26
Dear Doctor Rao,
Hospitalist progress notes state ' Complicated UTI'
Urology progress notes 'chronic ecoli bacteruria'
Urine cultures x 2 positive for E coli
Please clarify:
Acute UTI
chronic Ecoli bacteruria only
Other
Use of terms such as suspected, likely, concern for, or probable (associated with a specific diagnosis that is being evaluated, monitored, or treated as if it exists) are acceptable and can be coded in the inpatient setting, when documented at the
time of discharge.
Thank you,
Jerri Saavedra RN, BSN
CDI Specialist
tiger text
Please use your independent medical judgment in providing your response.
[2024-05-28] MEDS: STERILE WATER FOR INJECTION 10 ML IV (14:47)
[2024-05-28] MEDS: ROCEPHIN 1000 MG IV (14:47)
--- NOTE | 2024-05-28 14:53 | PTCARENOTE ---
pt voiding in urinal and also having some urinary incontinence
--- NOTE | 2024-05-28 16:19 | PTCARENOTE ---
pt transferred to room 406-2 , report given to receiving RN
[2024-05-28] MEDS: DILAUDID 0.5 MG IV ×2 (17:19→21:50)
[2024-05-28] MEDS: PROTONIX 40 MG PO (21:41)
[2024-05-28] MEDS: XANAX 1 MG PO (21:41)
[2024-05-29] MEDS: HEPARIN 5000 UNITS SC ×2 (00:42→09:12)
[2024-05-29] MEDS: TYLENOL 650 MG PO (00:42)
[2024-05-29 03:13] VITALS: BP 114/66
[2024-05-29 06:36] LABS: ALT (SGPT) 29 U/L (0-50); AST (SGOT) 30 U/L (17-59); Albumin 2.6 g/dl (3.5-5.0); Alkaline Phosphatase 68 U/L (38-126); Blood Urea Nitrogen 25 mg/dl (9-20); Carbon Dioxide 28 mmol/L (22-30); Chloride 102 mmol/L (98-107); Estimated Creatinine Clearance 60 ml/min; Glucose 88 mg/dl (70-99); Potassium 3.9 mmol/L (3.5-5.1); Sodium 140 mmol/L (135-145); Total Bilirubin 0.4 mg/dl (0.2-1.3); Total Protein 5.1 g/dl (6.3-8.2); eGFR 58.73
[2024-05-29 06:38] LABS: Hematocrit 35.4 % (39.0-52.0); Hemoglobin 11.4 g/dL (13.0-18.0); Mean Corp Hgb Conc. 32.2 g/dL (33.0-37.0); Mean Corpuscular Volume 93.2 fL (80.0-94.0); Mean Platelet Volume 10.3 fL (7.4-10.4); Platelet Count 226 10^3/uL (130-400); Red Cell Dist. Width 14.9 % (11.5-14.5); White Blood Cell Count 12.6 10^3/uL (4.8-10.8)
[2024-05-29 07:50] VITALS: BP 139/85
[2024-05-29] MEDS: FLOMAX 0.4 MG PO (09:13)
--- NOTE | 2024-05-29 12:17 | W.PN.HOSP.TC ---
Addendum entered and electronically signed by Aniket Yeh MD 05/30/24 16:13:
[id number]
Original Note:
Today's Communication/Plan
-
cefdinir to complete 14 day course of abx total; probiotics
f/u urology outpt
hold ARB, HCTZ, K repletion until bmp checked outpt
resume hydralazine
Assessment / Plan
Assessment / Plan
Physical Exam
General: Well Developed, Well Nourished and No Apparent Distress
HEENT: NormoCephalic, Moist mucous membranes and Atraumatic
Respiratory: Clear
Cardiac: S1/S2 and Regular Rhythm; No Murmur or Rub
GI: Soft, Non Distended, Normal Bowel Sounds and Tender (RLQ ); No Organomegaly
Rectal: Deferred by Provider
Musculoskeletal: No Clubbing, No Cyanosis and No Edema
Skin: No Rash
Neuro: Nonfocal/grossly intact
PLAN:
# Chronic 7 mm distal right ureteral calculus with worsening hydronephrosis
-CT scan shows moderate to severe hydronephrosis due to 7 mm distal right ureter stone. Stone was seen previously and unchanged however hydronephrosis is worse.
-s/p ureteroscopy and stent 05/26- post op sepsis
-IV fluids
-Flomax
-Zofran, Dilaudid
� Urology on board; f/u urology outpatient
#Sepsis
#Complicated UTI
-BPs improved
-2/2 to above
-History of recurrent E. coli UTI/prostatitis
-Urine cultures always been susceptible to cephalosporins
-Urine cultures - Ecoli - switch back to Ceftriaxone - switch to cefdinir to complete total course of 14 days abx
-blood cultures neg
-probiotics
-IVF Prn
# Acute kidney injury, improving
�Most likely postrenal secondary to obstruction versus septic ATN
� Monitor with resuscitation, decompression, surgical intervention, IV fluids, antibiotics
-IV fluids
-Hold losartan, hydrochlorothiazide, and nephrotoxic agents - can restart outpatient
-f/u bmp outptient
#Hypokalemia
� Monitor and replete
-hold k repletion with holding hctz
Obstructive sleep apnea
COPD
-Continue albuterol
Essential hypertension
-resume hydralazine
-Hold losartan, hydrochlorothiazide - can restart outpt
Obesity
Chronic back pain
GERD
-Continue Protonix
Anxiety
-Continue Xanax
Full code
DVT prophylaxis HSQ after procedure
More than 30 minutes spent in discharge including
Final examination of the patient
Summarizing hospital stay
Instructions for continuing care to all relevant caregivers
Preparation of discharge records, prescriptions, and referral forms
Total time spent (35 in minutes):
Anticipated Discharge: Today
Subjective/Interval History
-
Date of Service: May 29, 2024
No acute events, had some diarrhea overnight after ceftriaxone. Resolved this morning. Tolerating diet.
Objective Data
-
Labs:
Laboratory Results
05/29/24
05:31
WBC 12.6 H
Hgb 11.4 L
Hct 35.4 L
Plt Count 226 D
Sodium 140
Potassium 3.9
Chloride 102
Carbon Dioxide 28
BUN 25 H
Creatinine 1.3
Glucose 88
Calcium 8.0 L
Total Bilirubin 0.4
AST 30
ALT 29
Alkaline Phosphatase 68
Vital Signs:
Vital Signs
Temp Pulse Resp BP Pulse Ox
97.6 F 76 24 139/85 92
05/29/24 07:50 05/29/24 07:50 05/29/24 07:50 05/29/24 07:50 05/29/24 07:50
I&O
05/28/24 05/29/24 05/30/24
06:59 06:59 06:59
Intake Total 3020 / 3020 730 / 730
Output Total 2984 / 3084 187 / 187
Balance 36 / -64 -1145 / -1145
Review of Systems
-
History Source: Patient
All other systems: Not reviewed unless documented
Physical Exam
-
General: Well Developed, Well Nourished, No Apparent Distress, Comfortable and Conversant; Negative Respiratory Distress
HEENT: Normocephalic, Atraumatic, Nose Appears Normal and Ears Appear Normal; Negative Oxygen
Respiratory: Clear to Auscultation and Non Labored Respirations; Negative Accessory Resp Muscle Use
Cardiac: Regular Rhythm and S1/S2
GI: Soft, Nontender, Nondistended and Normal Bowel Sounds
Skin: Warm and Dry
Neuro: Awake, Alert, Oriented, AO x 3 and Nonfocal/Grossly Intact
Psych: Calm and Intact Judgement/Insight
Data Reviewed
-
CT Scan: Image personally visualized and interpreted and Report Reviewed by me
Labs: Labs Reviewed by me
--- NOTE | 2024-05-29 12:28 | W.PN.URO.CBU ---
Today's Communication / Plan
-
home today will remove stent in comoing days
Assessment / Plan
-
Partially obstructing 6-7 mm right distal ureteral stone
Right hydroureteronephrosis
chronic ecoli bacteruria
s/p ureteroscopy and stent 05/26- post op sepsis
pt doing well
stable for ICU transfer
low out today
continue ertapen for now
has generally responded to bactrim as outpatient
will follow
Diagnosis
-
Date of Service: May 29, 2024
-
Patient Diagnosis:
Post Op Day:
Patient Diagnosis:
nephrolithiasis with obstructing right ureteral stone
chronic ecoli bacteruria
post op sepsis
POST OP
05/26- right ureteroscopy/laser litho and stent
Subjective
-
feels well
Objective
-
Vital Signs
Temp Pulse Resp BP Pulse Ox
97.6 F 76 24 139/85 92
05/29/24 07:50 05/29/24 07:50 05/29/24 07:50 05/29/24 07:50 05/29/24 07:50
Intake and Output
05/28/24 05/29/24 05/30/24
06:59 06:59 06:59
Intake Total 3020 / 3020 730 / 730
Output Total 2984 / 3084 1875 / 1875
Balance 36 / -64 -1145 / -1145
Intake:
Oral fluids 1290 / 1290 730 / 730
IV fluids (Total) 1680 / 1680
NSS 1680 / 1680
IV piggybacks 50 / 50
Output:
Urine, Low 2984 / 3084 550 / 550
Urine, Voided 1325 / 1325
Other:
How many times incontinent 1
MODERATE amount urine
Laboratory Results
05/29/24 05:31
05/29/24 05:31
Review of Systems
-
: Frequency and Urgency
Physical Exam
-
General - well developed, well nourished, no acute distress
Chest - clear bilaterally
Abdomen - soft, non-tender, positive bowel sounds, no CVAT, no incisional pain or distention
Genitalia - normal
Rectal - normal
Skin - warm & dry with no rash
Neuro - AOx3, no motor deficits
Extremities - no clubbing, no cyanosis, no edema
Incision - clean, dry
Dressing - clean, dry, intact
Care Review
Data Reviewed
Discussed with: Nursing
[2024-05-29] MEDS: VISBIOME 1 CAP PO (12:30)
--- NOTE | 2024-05-29 12:31 | W.DS.TRANS ---
DC Summary - [employer]
-
Discharge Instructions:
Discharge Diagnosis/Procedures #Chronic 7 mm distal right ureteral calculus
with worsening hydronephrosis
#Sepsis
#Complicated UTI
Diet Low Cholesterol,Low Fat
Activity As tolerated
Blood Work cbc and bmp in 3-5 days with pcp
Instructions:
Stand-Alone Forms:
Changes to Home Medications: Yes
Discharge Medications:
DC Medications w/original date entered in [facility]
pantoprazole 40 mg tablet,delayed release 40 mg PO DAILYPRN PRN gerd 12/03/13
potassium citrate 10 mEq (1,080 mg) tablet,extended release 20 meq (2 x 10 mEq (1,080 mg)) PO BID #0 tabs 02/01/14
albuterol sulfate 90 mcg/actuation aerosol inhaler (Proventil HFA) 2 puff inhalation R Q4HPRN PRN asthma 08/26/18
ipratropium 0.5 mg-albuterol 3 mg (2.5 mg base)/3 mL nebulization soln 3 ml inhalation R Q4HPRN PRN SOB 08/26/18
alprazolam 1 mg tablet (Xanax) 1 mg PO HSPRN PRN sleep 04/05/23
hydralazine 25 mg tablet 25 mg PO BID Blood Pressure 04/05/23
hydrochlorothiazide 25 mg tablet 25 mg PO QPM Fluid Retention/Swelling 04/05/23
losartan 100 mg tablet 100 mg PO QPM Blood Pressure 04/05/23
Lactobac/Bifidobac [Visbiome] 1 cap PO DAILY 12 days 05/29/24
cefdinir 300 mg capsule 300 mg PO BID 12 days #24 caps 05/29/24
tamsulosin 0.4 mg capsule 0.4 mg PO DAILY 30 days #30 caps 05/29/24
Home Medication Changes
Lactobac/Bifidobac [Visbiome] 1 cap PO DAILY 12 days 05/29/24
cefdinir 300 mg capsule 300 mg PO BID 12 days #24 caps 05/29/24
tamsulosin 0.4 mg capsule 0.4 mg PO DAILY 30 days #30 caps 05/29/24
Pending Results: No
--- NOTE | 2024-05-29 12:34 | CM ---
MD entered order for discharge.
Spoke with pt in room .
He said he as ready for dc.
He said he was going to drive himself home.
IMM reviewed signed copy on chart.
Offered VN he declined need .
PLAN Home no needs
[2024-05-29 12:43] VITALS: BP 150/91
== END 2024-05-29 12:54 | disposition home or self-care (01) | DRG 659 ==
LOC: 4 EAST ACU 13:26
PROVIDERS: Nurse Practitioner; Specialist; ADMITTING PHYSICIAN Hospitalist; ATTENDING PHYSICIAN Internal Medicine; CONSULT PHYSICIAN Internal Medicine Critical Care Medicine; CONSULT PHYSICIAN Specialist; EMERGENCY PHYSICIAN Emergency Medicine; FAMILY PHYSICIAN Family Medicine
PROC: 0T768DZ Dilation of Right Ureter with Intraluminal Device, Via Natural or Artificial Opening Endoscopic (ICD-10-PCS; 2024-05-27)
PROC: 0TC68ZZ Extirpation of Matter from Right Ureter, Via Natural or Artificial Opening Endoscopic (ICD-10-PCS; 2024-05-27)
DX: N13.6 Pyonephrosis (principal); A41.9 Sepsis, unspecified organism; T81.44XA Sepsis following a procedure, initial encounter; N17.9 Acute kidney failure, unspecified; E87.6 Hypokalemia; G47.33 Obstructive sleep apnea (adult) (pediatric); J44.89 Other specified chronic obstructive pulmonary disease; I10 Essential (primary) hypertension; E66.9 Obesity, unspecified; K21.9 Gastro-esophageal reflux disease without esophagitis; F41.9 Anxiety disorder, unspecified; Z68.36 Body mass index [BMI] 36.0-36.9, adult; Y83.8 Other surgical procedures as the cause of abnormal reaction of the patient, or of later complication, without mention of misadventure at the time of the procedure
CPT/HCPCS: 74176; 74420; 76000; 80048; 80053; 81003; 81015; 83690; 83735; 85025; 85027; 87040; 87077; 87086; 87186; 96361; 96374; 96375; 99285; C1758; C1894; C2617; J1335